=== PATIENT | male | born 1945 | race Caucasian/White ===

== ENCOUNTER → 2019-02-04 | Outpatient (CLI) | payer MEDICARE | END | disposition home or self-care (01) | LOC: Rad HDHVI 09:10 | PROVIDERS: ATTEND Internal Medicine Cardiovascular Disease | DX: R22.40 Localized swelling, mass and lump, unspecified lower limb (principal) | CPT/HCPCS: 93971 ==

== ENCOUNTER → 2022-04-22 | Outpatient (CLI) | payer MEDICARE | END | disposition home or self-care (01) | LOC: Rad HDHVI 10:46 | PROVIDERS: ATTEND Internal Medicine | DX: I51.7 Cardiomegaly (principal); M54.6 Pain in thoracic spine | CPT/HCPCS: 71101; 72070 ==

== ENCOUNTER → 2022-04-25 | Outpatient (CLI) | payer MEDICARE ==
[2022-04-25 12:02] LABS: Basophils # (auto) 0 10 ^3/uL (0-0.2); Basophils % (auto) 0.6 % (0.0-2.0); Eosinophils # (auto) 0.3 10 ^3/uL (0-0.8); Eosinophils % (auto) 5.3 % (0.0-7.0); Hematocrit 49.9 % (41.0-53.0); Hemoglobin 16.9 g/dL (13.5-17.5); Lymphocytes # (auto) 1.2 10 ^3/uL (0.4-5.4); Lymphocytes % (auto) 24.2 % (10.0-50.0); Mean Corpuscular Hgb Conc. 33.8 g/dL (32.0-36.0); Mean Corpuscular Volume 91.9 fL (80.0-100.0); Monocytes # (auto) 0.4 10 ^3/uL (0-1.3); Monocytes % (auto) 7.3 % (0.0-12.0); Neutrophils # (auto) 3.1 10 ^3/uL (1.6-8.6); Neutrophils % (auto) 62.6 % (37.0-80.0); Nucleated Red Blood Cells % 0.2 %; Red Blood Cells 5.43 10^6/uL (4.5-5.90); Red Cell Distribution Width 13.3 % (11.8-14.3); White Blood Cell 4.9 10^3/uL (4.4-10.8)
[2022-04-25 12:12] LABS: Potassium 4.4 mmol/L (3.5-5.1)
[2022-04-25 12:22] LABS: Free T4 (Free Thyroxine) 0.88 ng/dL (0.89-1.76)
[2022-04-25 12:25] LABS: Albumin 3.8 g/dL (3.4-5.0); BUN/Creatinine Ratio 19.5; Bilirubin, Total 1.2 mg/dL (0.2-1.0); Calcium 9.2 mg/dL (8.5-10.1); Total Protein 7.1 g/dL (6.4-8.2)
[2022-04-25 12:34] LABS: Prostate Specific Antigen 4.1 ng/mL (0.0-4.0)
[2022-04-25 12:46] LABS: Urine Blood Negative /uL (Negative); Urine Specific Gravity 1.024 (1.001-1.035)
== END | disposition home or self-care (01) ==
LOC: LAB 08:35
PROVIDERS: ATTEND Internal Medicine
DX: I25.10 Atherosclerotic heart disease of native coronary artery without angina pectoris (principal); E55.9 Vitamin D deficiency, unspecified
CPT/HCPCS: 36415; 80053; 80061; 81003; 82306; 82607; 83036; 84153; 84154; 84403; 84439; 84443; 85025

== ENCOUNTER → 2022-04-29 | Outpatient (CLI) | payer MEDICARE | END | disposition home or self-care (01) | LOC: Rad HDHVI 08:59 | PROVIDERS: ATTEND Internal Medicine | DX: I35.0 Nonrheumatic aortic (valve) stenosis (principal); R06.02 Shortness of breath | CPT/HCPCS: 93306 ==

== ENCOUNTER → 2022-05-02 | Outpatient (CLI) | payer MEDICARE ==
[~2022-05-02] VITALS: Ht 167.6 cm; Wt 82.6 kg
== END | disposition home or self-care (01) ==
LOC: Rad HDHVI 09:04
PROVIDERS: ATTEND Internal Medicine
DX: I25.10 Atherosclerotic heart disease of native coronary artery without angina pectoris (principal); I25.119 Atherosclerotic heart disease of native coronary artery with unspecified angina pectoris; R07.9 Chest pain, unspecified; R06.02 Shortness of breath; E78.5 Hyperlipidemia, unspecified; I10 Essential (primary) hypertension; R07.89 Other chest pain; Z79.82 Long term (current) use of aspirin; Z82.49 Family history of ischemic heart disease and other diseases of the circulatory system
CPT/HCPCS: 78452; 93017; 96374; A9500

== ENCOUNTER → 2024-03-25 | Outpatient (CLI) | payer MEDICARE | END | disposition home or self-care (01) | LOC: Rad HDHVI 09:45 | PROVIDERS: ATTEND Internal Medicine Cardiovascular Disease | DX: R07.89 Other chest pain (principal); I50.23 Acute on chronic systolic (congestive) heart failure | CPT/HCPCS: 93306 ==

== ENCOUNTER → 2024-03-27 | Outpatient (CLI) | payer MEDICARE ==
[~2024-03-27] VITALS: Ht 167.6 cm; Wt 79.4 kg
== END | disposition home or self-care (01) ==
LOC: Rad HDHVI 13:59
PROVIDERS: ATTEND Internal Medicine Cardiovascular Disease
DX: I11.0 Hypertensive heart disease with heart failure (principal); I50.43 Acute on chronic combined systolic (congestive) and diastolic (congestive) heart failure; I25.110 Atherosclerotic heart disease of native coronary artery with unstable angina pectoris; R42 Dizziness and giddiness; E78.5 Hyperlipidemia, unspecified; R06.02 Shortness of breath; R00.2 Palpitations; I25.2 Old myocardial infarction; Z82.49 Family history of ischemic heart disease and other diseases of the circulatory system
CPT/HCPCS: 78452; 93017; 96374; A9500

== ENCOUNTER 2024-12-03 08:49 | Outpatient (CLI) | payer MEDICARE ==
[2024-12-03] MEDS ORDERED: IOHEXOL 350 MG/ML 100ML IJ ONE (09:12)
[2024-12-03 09:20] VITALS: BP 168/87; PULSE 67; RESP 16; O2SAT 96
[2024-12-03 09:37] VITALS: BP 180/80; PULSE 65; RESP 16; O2SAT 96
--- NOTE | 2024-12-03 16:46 | DVH ---
Exam: CT CT AB PEL WITH IV CON ONLY History: ABD PAIN COMPARISON: None Technique: Multidetector spiral CT of the abdomen and pelvis was performed from lung bases to pubic symphysis. Intravenous contrast was administered during this examination. Portal venous imaging was obtained. Axial, coronal and sagittal multiplanar reformats were performed by the technologist on a separate workstation. Radiation Dose : Abdomen/Pelvis: CTDIvol 14.53 mGy, DLP 711.83 mGy*cm. CONTRAST: Type of contrast: Omni 300 Contrast injected: 100 mL Findings: Lung Bases: Consolidation in the left lung base. Liver: Diffuse hepatic steatosis. Gallbladder and biliary Tree: Unremarkable Spleen: Unremarkable Pancreas: The pancreas is normal in appearance without focal lesions or abnormal enhancement. Adrenal Glands: Unremarkable Kidneys: Right renal calculus measuring up to 4 mm. No hydronephrosis. Bladder: Unremarkable Bowel: The stomach is grossly normal in appearance. Small bowel and colon are normal in caliber and d istribution. Normal appendix is visualized in the right lower quadrant without findings of appendicit is. Sigmoid diverticulosis. Ascites: Absent Lymphadenopathy: Subcentimeter mesenteric lymph nodes. Abdominal wall and Mesentery: Unremarkable. Vasculature: The visualized abdominal aorta is normal in size and caliber. There is calcified atheros clerotic plaque involving the aorta and its branches. Abdominal and pelvic vessels demonstrate normal enhancement. Pelvic Organs: Prostate is enlarged. Musculoskeletal: No aggressive focal bony lesions, acute fractures or dislocation. IMPRESSION: 1. No acute abdominal or pelvic finding. Diffuse hepatic steatosis. Right renal calculus measuring up to 4 mm. Sigmoid diverticulosis. Subcentimeter mesenteric lymph nodes. Calcified and soft atheroscle rotic plaque. Prostatomegaly. 2. Consolidation in the left lung base. Consider dedicated chest CT. Radiation optimization: All CT scans at this facility use at least one of these dose optimization pro hniques: Automated exposure control mA and/or kV adjustment per patient size (includes targeted exams where dose is matched to clinical indication) or iterative reconstruction. HS:Y
== END 2024-12-03 17:00 | disposition home or self-care (01) ==
LOC: Rad HDHVI 08:49
PROVIDERS: ATTEND Internal Medicine Cardiovascular Disease
DX: K76.0 Fatty (change of) liver, not elsewhere classified (principal); N20.0 Calculus of kidney; K57.30 Diverticulosis of large intestine without perforation or abscess without bleeding; N40.0 Benign prostatic hyperplasia without lower urinary tract symptoms; I70.90 Unspecified atherosclerosis; R10.9 Unspecified abdominal pain
CPT/HCPCS: 74177; G0463; Q9967

== ENCOUNTER 2024-12-31 10:14 | Inpatient (IN) | payer MEDICARE ==
[2024-12-31] VITALS (7 sets, daily range): BP systolic 108–135; BP diastolic 47–75; PULSE 84–115; RESP 15–20; TEMP 97.2–97.6; O2SAT 93–97
[~2024-12-31] VITALS: Ht 167.6 cm; Wt 83.8 kg
[~2024-12-31 10:14] MED LIST: HYDR12.55 PO; METO25TA5 PO
--- NOTE | 2024-12-31 10:47 | ED.PDOC ---
History of Present Illness HPI Comments This is a 79-year-old male with past medical history of hypertension, hyperlipidemia, CAD with PTCA x2 stent, kidney stone, BPH presented to the ED with a chief complaint of left leg swelling for 3 days prior to this visit. He mentioned that he had a stent in the heart 6-7 months ago but he stopped taking medications for last 1 month. He denies any trauma to the leg, fever, chills, pain, nausea, vomiting, chest pain, dizziness, shortness of breath, recent traveling, prolonged bedrest or any recent surgery. Chief Complaint: Lower Extremity Time Seen by MD: 10:24 Allergies: Coded Allergies: Atorvastatin (Verified Allergy, Unknown, 05/02/22) Rosuvastatin (Verified Allergy, Unknown, 05/02/22) Statins (Verified Allergy, Unknown, 05/02/22) Information Source: Patient Mode of Arrival: Ambulatory Severity: Moderate Timing: Days Duration: Since onset Prehospital treatment: NTG Past Medical History PAST MEDICAL HISTORY: Angina, CAD, High Lipids, HTN, Kidney Stones, [place] Surgical History: PTCA Surgical History (Other): Back and rotator cuff surgery Family History Family History: Family hx of Cancer, Family hx of heart gary Social History Smoker: Non-Smoker Alcohol: Denies ETOH Use Drugs: Denies Drug Use Lives In: Home Constitutional: denies: chills, diaphoresis, fatigue, fever, malaise, sweats, weakness, others EENTM: denies: blurred vision, double vision, ear bleeding, ear discharge, ear drainage, ear pain, ear ringing, eye pain, eye redness, hearing loss, mouth pain, mouth swelling, nasal discharge, nose bleeding, nose congestion, nose pain, photophobia, tearing, throat pain, throat swelling, voice changes, others Respiratory: denies: cough, hemoptysis, orthopnea, SOB at rest, shortness of breath, SOB with excertion, stridor, wheezing, others Cardiovascular: denies: chest pain, dizzy spells, diaphoresis, Dyspnea on e xertion, edema, irregular heart beat, left arm pain, lightheadedness, palpitations, PND, syncope, others Gastrointestinal: denies: abdomen distended, abdominal pain, blood streaked bowels, constipated, diarrhea, dysphagia, difficulty swallowing, hematemesis, melena, nausea, poor appetite, poor fluid intake, rectal bleeding, rectal pain, vomiting, others Genitourinary: denies: burning, dysuria, flank pain, frequency, hematuria, incontinence, penile discharge, penile sore, pain, testicle pain, testicle swelling, urgency, others Neurological: denies: dizziness, fainting, headache, left sided numbness, left sided weakness, numbness, paresthesia, pre-existing deficit, right sided numbness, right sided weakness, seizure, speech problems, tingling, tremors, weakness, others Musculoskeletal: reports: others (Left leg swelling); denies: back pain, gout, joint pain, joint swelling, muscle pain, muscle stiffness, neck pain Integumetry: reports: change in color; denies: bruises, change in hair/nails, dryness, laceration, lesions, lumps, rash, wounds, others Allergic/Immunocompromised: denies: Difficulty Healing, Frequent Infections, Hives, Itching, others Hematologic/Lymphatic: denies: anemia, blood clots, easy bleeding, easy bruising, swollen glands, others Endocrine: denies: excessive hunger, excessive sweating, excessive thirst, excessive urination, flushing, intolerance to cold, intolerance to heat, unexplained weight gain, unexplained weight loss, others Psychiatric: denies: anxiety, bipolar disorder, depression, hopeless, panic disorder, schizophrenia, sleepless, suicidal, others Physical Exam General Appearance: Mild Distress HEENT: Normal ENT Inspection, Pharynx Normal, TMs Normal Neck: Full Range of Motion, Non-Tender, Normal, Normal Inspection Respiratory: Chest Non-Tender, Lungs Clear, No Accessory Muscle Use, No Respiratory Distress, Normal Breath Sounds Cardiovascular: No Edema, No JVD, No Murmur, No Gallop, Normal Peripheral Pulses, Regular Rate/Rhythm Breast Exam: Deferred Gastrointestinal: No Organomegaly, Non Tender, No Pulsatile Mass, Normal Bowel Sounds, Soft Genitalia: Deferred Pelvic: Deferred Rectal: Deferred Extremities: Calf tenderness, Other (Left leg swelling and tenderness from thigh to ankle.) 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 Was a procedure done?: No Differential Dx Considerations may include: DVT, cellulitis of the left leg, acute limb ischemia, peripheral artery disease X-Ray, Labs, Meds, VS Vital Signs Date Time Temp Pulse Resp B/P (MAP) Pulse Ox O2 Delivery O2 Flow Rate FiO2 12/31/24 10:16 97.4 92 16 139/76 97 97.4 Lab Test 12/31/24 11:00 Range/Units White Blood Count 8.2 4.4-10.8 10^3/uL Red Blood Count 5.23 4.5-5.90 10^6/uL Hemoglobin 15.6 13.5-17.5 g/dL Hematocrit 46.1 41.0-53.0 % Mean Corpuscular Volume 88.2 80.0-100.0 fL Mean Corpuscular Hemoglobin 29.9 28.0-32.0 pg Mean Corpuscular Hemoglobin Concent 33.9 32.0-36.0 g/dL Red Cell Distribution Width 13.3 11.8-14.3 % Platelet Count 150 140-450 10^3/uL Mean Platelet Volume 7.8 6.9-10.8 fL Neutrophils (%) (Auto) 75.2 37.0-80.0 % Lymphocytes (%) (Auto) 12.1 10.0-50.0 % Monocytes (%) (Auto) 7.3 0.0-12.0 % Eosinophils (%) (Auto) 4.8 0.0-7.0 % Basophils (%) (Auto) 0.6 0.0-2.0 % Neutrophils # (Auto) 6.2 1.6-8.6 10 ^3/uL Lymphocytes # (Auto) 1.0 0.4-5.4 10 ^3/uL Monocytes # (Auto) 0.6 0-1.3 10 ^3/uL Eosinophils # (Auto) 0.4 0-0.8 10 ^3/uL Basophils # (Auto) 0 0-0.2 10 ^3/uL Nucleated Red Blood Cells 0.1 % Prothrombin Time 11.1 9.3-11.8 sec Prothrombin Time INR 1.05 0.9-1.15 Activated Partial Thromboplast Time 29.4 24.5-34.5 SEC Sodium Level 141 136-145 mmol/L Potassium Level 3.9 3.5-5.1 mmol/L Chloride Level 107 98-107 mmol/L Carbon Dioxide Level 24 20-31 mmol/L Anion Gap 10 5-15 Blood Urea Nitrogen 15 9-23 mg/dL Creatinine 1.28 0.700-1.30 mg/dL Glomerular Filtration Rate Calc 57 >90 mL/min BUN/Creatinine Ratio 11.7 10.0-20.0 Serum Glucose 97 74-106 mg/dL Calcium Level 9.7 8.7-10.4 mg/dL Troponin I High Sensitivity 193 *H </=54 ng/L Current Medications Medications (Trade) Dose Ordered Sig/Will Route Start Time Stop Time Status Last Admin Heparin Sodium (Porcine) 6,500 units ONCE ONCE IV 12/31/24 11:45 12/31/24 12:06 DC 12/31/24 12:50 Heparin Sodium/ Dextrose 250 ml @ 15 mls/hr [id number] IV 12/31/24 11:45 12/31/24 12:48 X-Ray, Labs, Meds, VS Comment Bilateral lower extremity venous duplex Clinical History: Pain Comparison: None Technique: Duplex Doppler evaluation of the deep venous systems of both lower extremities f rom the common femoral veins to the popliteal veins including color Doppler and spectral/pulsed waveform analysis was performed. Findings: RIGHT SIDE: The common femoral vein demonstrates appropriate compressibility and waveform variability. There is compressibility/patency of the great saphenous vein at the proximal thigh. The femoral vein demonstrates appropriate compressibility and waveform variability. The deep femoral vein demonstrates appropriate compressibility and waveform variability. The popliteal vein demonstrates appropriate compressibility and waveform variability. There is normal compressibility at the tibioperoneal trunk. LEFT SIDE: Positive thrombus is present throughout the left lower extremity from the common femoral vein to the posterior tibial vein. Impression: No right femoropopliteal venous thrombosis. Positive DVT extendingfrom the leftcommon femoral veindown to the left posterior tibial vein. Critical Result: DVT History: DVT of the left leg Comparison Study: CT CT AB PEL WITH IV CON ONLY on DOS: 12/03/24 Technique: Multidetector spiral CT of the pelvis was performed from iliac crests to pubic symphysis. 100 cc of intravenous contrast was administered during this examination. Portal venous imaging was obtained. Axial, coronal and sagittal multiplanar reformats were performed by the technologist on a separate workstation. Radiation Dose : CT Dose: CTDI volume is 16.66 mGy. Dose-length product is 2.78 mGy*cm Findings: Visualized bowel: Small bowel and colon are normal in caliber and distribution. The appendix is not visualized; however, no secondary findings of acute appendicitis identified. Ascites: Absent Lymphadenopathy: No pelvic or mesenteric lymphadenopathy. Pelvis Wall and Mesentery: Unremarkable. Vasculature: Mild asymmetric enlargement of the left superficial femoral vein. The visualized abdominal aorta is normal in size and caliber. Abdominal and pelvic vessels demonstrate normal enhancement. Pelvic Organs: Unremarkable Musculoskeletal: No aggressive focal bony lesions, acute fractures or dislocation. Bladder: Unremarkable IMPRESSION: Mild asymmetric enlargement of the left superficial femoral vein likely corresponding to DVT noted on ultrasound dated the same. Images Reviewed?: Images reviewed and evaluated by me Time of 1ST Reevaluation: 14:14 Reevaluation 1ST: Unchanged Patient Education/Counseling: Diagnosis, Treatment Family Education/Counseling: No Family Present Comments 79-year-old male presented to the ED with complaint of left leg swelling for last 3 days Initial physical exam demonstrate swelling and tenderness of the left leg from thigh to the ankle. Venous scan of the lower extremity demonstrated Positive DVT extendingfrom the leftcommon femoral veindown to the left posterior tibial vein. Troponin is elevated Patient is on IV heparin drip as per DVT protocol. The patient will be admitted for further evaluation and management of DVT of the left leg SEPSIS Sepsis Screen Date sepsis recognized/suspect: Dec 31, 2024 Time Sepsis recognized/suspect: 1019 Recent Procedure: No On Antibiotic Therapy: No Respiratory Rate >20: No Heart Rate >90: No Temp<36 C (96.8 F) or >38.3 C: No SBP <90 or MAP <65 mmHG: No New Acute Mental Status Change: No Is the patient on CPAP, BIPAP,: No Physician Orders Bilat Lower Dvt (12/31/24 10:44) Urinalysis (12/31/24 10:44) Electrocardigram (12/31/24 10:46) Chest Portable (12/31/24 11:37) Platelet Monitoring (12/31/24 11:44) Vte Protocol Initiated (12/31/24 11:44) Heparin Per Standardized Proce (12/31/24 11:44) Discontinue All Im Injections (12/31/24 11:44) Heparin Drip/D5w 100units/Ml (12/31/24 11:45) Pelvis With Contrast Only (12/31/24 11:55) Complete Blood Count (01/01/25 04:00) PTPTT (12/31/24 18:00) Heparin Per Pharmacy Protocol (12/31/24 12:07) Vital Signs Date Time Temp Pulse Resp B/P (MAP) Pulse Ox O2 Delivery O2 Flow Rate FiO2 12/31/24 10:16 97.4 92 16 139/76 97 97.4 Laboratory Tests Test 12/31/24 11:00 White Blood Count 8.2 10^3/uL (4.4-10.8) Medications Medications Dose Ordered Sig/Will Route Start Time Stop Time Status Last Admin Dose Admin Heparin Sodium (Porcine) 6,500 units ONCE ONCE IV 12/31/24 11:45 12/31/24 12:06 DC 12/31/24 12:50 Heparin Sodium/ Dextrose 250 ml @ 15 mls/hr [id number] IV 12/31/24 11:45 12/31/24 12:48 Departure 1 Departure Time of Disposition: 14:16 Impression: Primary Impression: Deep vein thrombosis (DVT) of left lower extremity Additional Impression: NSTEMI (non-ST elevated myocardial infarction) Disposition: 09 ADMITTED INPATIENT Admit to: Tele Condition: Guarded Critical Care Note Critical Care Time?: No Stability Stability form required: NANCY Palmer RESIDENT Dec 31, 2024 10:47
[2024-12-31 11:15] LABS: Hematocrit 46.1 % (41.0-53.0); Hemoglobin 15.6 g/dL (13.5-17.5); Mean Corpuscular Hemoglobin 29.9 pg (28.0-32.0); Mean Corpuscular Volume 88.2 fL (80.0-100.0); Nucleated Red Blood Cells % 0.1 %
[2024-12-31 11:20] LABS: Potassium 3.9 mmol/L (3.5-5.1); Sodium 141 mmol/L (136-145)
[2024-12-31 11:21] LABS: Anion Gap 10 (5-15); Carbon Dioxide 24 mmol/L (20-31)
[2024-12-31 11:22] LABS: Calcium 9.7 mg/dL (8.7-10.4); Chloride 107 mmol/L (98-107)
[2024-12-31 11:26] LABS: BUN/Creatinine Ratio 11.7 (10.0-20.0); Blood Urea Nitrogen 15 mg/dL (9-23); Glucose 97 mg/dL (74-106)
--- NOTE | 2024-12-31 11:46 | DVH ---
Bilateral lower extremity venous duplex Clinical History: Pain Comparison: None Technique: Duplex Doppler evaluation of the deep venous systems of both lower extremities from the common femora l veins to the popliteal veins including color Doppler and spectral/pulsed waveform analysis was perf ormed. Findings: RIGHT SIDE: The common femoral vein demonstrates appropriate compressibility and waveform variability. There is compressibility/patency of the great saphenous vein at the proximal thigh. The femoral vein demonstrates appropriate compressibility and waveform variability. The deep femoral vein demonstrates appropriate compressibility and waveform variability. The popliteal vein demonstrates appropriate compressibility and waveform variability. There is normal compressibility at the tibioperoneal trunk. LEFT SIDE: Positive thrombus is present throughout the left lower extremity from the common femoral vein to the posterior tibial vein. Impression: No right femoropopliteal venous thrombosis. Positive DVT extendingfrom the leftcommon femoral veindown to the left posterior tibial vein. Critical Result: DVT Findings discussed with NANCY OLVERA at 12/31/2024 11:43 AM, and acknowledged receipt and understa nding of the findings.
--- NOTE | 2024-12-31 12:12 | CONS ---
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
--- NOTE | 2024-12-31 12:13 | DVH ---
CHEST RADIOGRAPH Indication: elevated troponin Technique: Single frontal view of the chest was obtained COMPARISON: None FINDINGS: Lines and Tubes: None Lungs: Bibasilar subsegmental atelectasis. Pleura: No effusion. No pneumothorax. Cardiomediastinal contours: Unremarkable Bones: Unremarkable IMPRESSION: Bibasilar subsegmental atelectasis.
[2024-12-31] MEDS: IOHEXOL 350 MG/ML 100ML IJ ONE ×2 (12:45→23:26)
[2024-12-31] MEDS: HEPARIN DRIP/D5W 100UNITS/ML 250 ML IV SCH ×2 (12:48→19:41)
[2024-12-31 12:50] LABS: INR 1.05 (0.9-1.15); Partial Thromboplastin Time 29.4 SEC (24.5-34.5); Prothrombin Time 11.1 sec (9.3-11.8)
[2024-12-31] MEDS: HEPARIN SODIUM (PORCINE) 5000 UNITS/ML 1ML VIAL IV ONE (12:50)
--- NOTE | 2024-12-31 13:00 | DVH ---
History: DVT of the left leg Comparison Study: CT CT AB PEL WITH IV CON ONLY on DOS: 12/03/24 Technique: Multidetector spiral CT of the pelvis was performed from iliac crests to pubic symphysis. 100 cc of intravenous contrast was administered during this examination. Portal venous imaging was obtained. Axial, coronal and sagittal multiplanar reformats were performed by the technologist on a separate workstation. Radiation Dose : CT Dose: CTDI volume is 16.66 mGy. Dose-length product is 2.78 mGy*cm Findings: Visualized bowel: Small bowel and colon are normal in caliber and distribution. The appendix is not visualized; however, no secondary findings of acute appendicitis identified. Ascites: Absent Lymphadenopathy: No pelvic or mesenteric lymphadenopathy. Pelvis Wall and Mesentery: Unremarkable. Vasculature: Mild asymmetric enlargement of the left superficial femoral vein. The visualized abdomin al aorta is normal in size and caliber. Abdominal and pelvic vessels demonstrate normal enhancement. Pelvic Organs: Unremarkable Musculoskeletal: No aggressive focal bony lesions, acute fractures or dislocation. Bladder: Unremarkable IMPRESSION: Mild asymmetric enlargement of the left superficial femoral vein likely corresponding to DVT noted on ultrasound dated the same.
[2024-12-31 14:52] LABS: Urine Protein, UAD TRACE (Negative)
[2024-12-31] MEDS ORDERED: ACETAMINOPHEN 325 MG TAB PO PRN (15:00)
[2024-12-31] MEDS ORDERED: HYDROcodone-ACET 5/325MG TAB PO PRN ×2 (15:00→22:30)
[2024-12-31] MEDS ORDERED: DOCUSATE SOD 100 MG CAP PO PRN (15:00)
[2024-12-31] MEDS ORDERED: ONDANSETRON HCL 4 MG/2 ML VIAL IV PRN ×2 (15:00→22:30)
--- NOTE | 2024-12-31 15:52 | DVHHP2 ---
History of Present Illness Reason for Visit: Deep vein thrombosis of left lower extremity History of Present Illness The patient is a 79-year-old male with past medical history of angina, Coronary artery disease, hyperlipidemia, kidney stones, ME, and hypertension who presented to [facility] ED with complaint of left leg swelling for the past 3 days. Patient reports he had a stent in the heart 6-7 months ago, but stopped taking his medication for the last 1 month. Patient was seen and evaluated in the ED, laboratory data shows WBC 8.2, platelets 150, sodium 141, potassium 3.9, BUN 15, creatinine 1.28, glucose 97, calcium 9.7, troponin 193, blood pressure 159/90, heart rate 72, temperature 97.9 F, O2 saturation 97% on room air. Bilateral lower extremity venous study revealing positive DVT extending from the left common femoral vein down to the left posterior tibial vein, no right femoropopliteal venous thrombosis. Patient was started on heparin drip, please see medication orders section in the computer. On my assessment, patient denied chest pain, no headache, no dizziness, no diaphoresis, no shortness of breath, recent traveling, prolonged bedrest or any recent surgery, no nausea, no vomiting, no fever, no chills. Patient was admitted for further evaluation and medical management. Patient's condition progressively get worse with constant chest pain, troponin trending up to 510 and then down to 333, became more diaphoretic, shortness of breaths, EKG showing ST elevation with reciprocal changes anteriorly, cardiology notified and recommend to activate cardiac catheterization lab. Code STEMI activated and patient was transported to lab support service tech in stable condition. Past Medical History Angina, CAD, High Lipids, HTN, Kidney Stones, ME Past Surgical History PTCA, Back and rotator cuff surgery Family History Reviewed, noncontributory to the management of this case. Past Social History The patient lives at home, denies smoking, alcohol or illicit drugs abuse. Review of Systems Constitutional: No: Fever, Chills, Sweats, Weakness, Malaise, Other Eyes: No: Pain, Vision change, Conjunctivae inflammation, Eyelid inflammation, Other, Redness ENT: No: Ear pain, Ear discharge, Nose pain, Nose discharge, Nose congestion, Mouth pain, Mouth swelling, Throat pain, Throat swelling, Other Respiratory: No: Cough, Dry, Shortness of breath, SOB with excertion, Wheezing, Hemoptysis, Pleuritic Pain, Sputum, Wheezing, Other Cardiovascular: No: Chest Pain, Palpitations, Orthopnea, Paroxysmal Noc. Dyspnea, Edema, Lt Headedness, Other Gastrointestinal: No: Nausea, Vomiting, Abdominal Pain, Diarrhea, Constipation, Melena, Hematochezia, Other Genitourinary: No Dysuria, No Frequency, No Incontinence, No Hematuria, No Retention, No Other Musculoskeletal: other (Left leg swelling), leg pain (Left); No: neck pain, shoulder pain, arm pain, back pain, hand pain, foot pain Skin: Other (Left leg change in color); No: Rash, Lesions, Jaundice, Bruising Neurological: No: Weakness, Numbness, Incoordination, Change in speech, Confusion, Seizures, Other Allergies: Coded Allergies: Atorvastatin (Verified Allergy, Unknown, 05/02/22) Rosuvastatin (Verified Allergy, Unknown, 05/02/22) Statins (Verified Allergy, Unknown, 05/02/22) Medications Current Medications Medications Dose Ordered Sig/Will Route Start Time Stop Time Status Last Admin Dose Admin Heparin Sodium/ Dextrose 250 ml @ 15 mls/hr [id number] IV 12/31/24 11:45 12/31/24 12:48 15 MLS/HR Famotidine 20 mg Q12HR IV 12/31/24 22:00 Metoprolol Tartrate 25 mg BID PO 12/31/24 22:00 Tamsulosin HCl 0.4 mg QPM PO 12/31/24 18:00 Sodium Chloride 10 ml Q8HR IV 12/31/24 22:00 Acetaminophen/ Hydrocodone Bitart 1 tab Q4HP PRN PO 12/31/24 15:00 Ondansetron HCl 4 mg Q4HP PRN IV 12/31/24 15:00 Docusate Sodium 100 mg BIDPRN PRN PO 12/31/24 15:00 Acetaminophen 650 mg Q6HP PRN PO 12/31/24 15:00 Exam Vital Signs Vital Signs Date Time Temp Pulse Resp B/P (MAP) Pulse Ox O2 Delivery O2 Flow Rate FiO2 12/31/24 14:00 72 11 159/90 (113) 97 12/31/24 12:00 Room Air* 0 21 12/31/24 11:45 97.9 97.9 General Appearance: Alert, Oriented X3, Cooperative, No acute distress HEENT: Atraumatic, PERRLA, EOMI, Mucous membr. moist/pink Respiratory: Clear to auscultation, Normal air movement Cardiovascular: Regular rate, Normal S1, Normal S2, No murmurs Abdominal: Normal bowel sounds, Soft, No tenderness, No hepatospenomegaly, No masses Extremities: No clubbing, No cyanosis, No edema, Normal pulses, No tenderness/swelling Skin: No rashes, No breakdown, No significant lesion Neuro: Normal gait, Normal speech, Strength at 5/5 X4 ext, Normal tone, Sensation intact, Cranial nerves 3-12 NL, Reflexes 2+ Psych/Mental Status: Mental status NL, Mood NL Labs/Xrays Labs Test 12/31/24 14:02 12/31/24 11:00 Range/Units Urine Color Yellow Yellow Urine Clarity Clear Clear Urine pH 5.5 5.0-9.0 Urine Specific [place] > 1.050 H 1.001-1.035 Urine Protein Trace H Negative Urine Ketones 1+ H Negative Urine Blood 1+ H Negative /uL Urine Nitrite Negative Negative Urine Bilirubin Negative Negative Urine Urobilinogen Normal Negative mg/dL Urine Leukocyte Esterase Negative Negative /uL Urine RBC 47 0 - 3 /hpf Urine Microscopic WBC 1 0-3 /HPF Urine Squamous Epithelial Cells None seen <5 /hpf Urine Bacteria None seen None Seen /hpf Urine Mucus Few None Seen Urine Glucose Normal Normal mg/dL White Blood Count 8.2 4.4-10.8 10^3/uL Red Blood Count 5.23 4.5-5.90 10^6/uL Hemoglobin 15.6 13.5-17.5 g/dL Hematocrit 46.1 41.0-53.0 % Mean Corpuscular Volume 88.2 80.0-100.0 fL Mean Corpuscular Hemoglobin 29.9 28.0-32.0 pg Mean Corpuscular Hemoglobin Concent 33.9 32.0-36.0 g/dL Red Cell Distribution Width 13.3 11.8-14.3 % Platelet Count 150 140-450 10^3/uL Mean Platelet Volume 7.8 6.9-10.8 fL Neutrophils (%) (Auto) 75.2 37.0-80.0 % Lymphocytes (%) (Auto) 12.1 10.0-50.0 % Monocytes (%) (Auto) 7.3 0.0-12.0 % Eosinophils (%) (Auto) 4.8 0.0-7.0 % Basophils (%) (Auto) 0.6 0.0-2.0 % Neutrophils # (Auto) 6.2 1.6-8.6 10 ^3/uL Lymphocytes # (Auto) 1.0 0.4-5.4 10 ^3/uL Monocytes # (Auto) 0.6 0-1.3 10 ^3/uL Eosinophils # (Auto) 0.4 0-0.8 10 ^3/uL Basophils # (Auto) 0 0-0.2 10 ^3/uL Nucleated Red Blood Cells 0.1 % Prothrombin Time 11.1 9.3-11.8 sec Prothrombin Time INR 1.05 0.9-1.15 Activated Partial Thromboplast Time 29.4 24.5-34.5 SEC Sodium Level 141 136-145 mmol/L Potassium Level 3.9 3.5-5.1 mmol/L Chloride Level 107 98-107 mmol/L Carbon Dioxide Level 24 20-31 mmol/L Anion Gap 10 5-15 Blood Urea Nitrogen 15 9-23 mg/dL Creatinine 1.28 0.700-1.30 mg/dL Glomerular Filtration Rate Calc 57 >90 mL/min BUN/Creatinine Ratio 11.7 10.0-20.0 Serum Glucose 97 74-106 mg/dL Calcium Level 9.7 8.7-10.4 mg/dL Troponin I High Sensitivity 193 *H </=54 ng/L PATIENT: ALINA JOHN ACCT: [id number] UNIT: [id number] : 1945 LOC: ER ROOM / BED: / AGE / SEX: 79 / M ADM STATUS: REG ER SERVICE 1044 ORDERING PHYSICIAN: NANCY OLVERA RESIDENT PROCEDURE(s): BLDVT - BiLat Lower DVT REASON: To rule out DVT ORDER NUMBER(s): [id number], ACCESSION NUMBER(s): [id number] Bilateral lower extremity venous duplex Clinical History: Pain Comparison: None Technique: Duplex Doppler evaluation of the deep venous systems of both lower extremities from the common femoral veins to the popliteal veins including color Doppler and spectral/pulsed waveform analysis was performed. Findings: RIGHT SIDE: The common femoral vein demonstrates appropriate compressibility and waveform variability. There is compressibility/patency of the great saphenous vein at the proximal thigh. The femoral vein demonstrates appropriate compressibility and waveform variability. The deep femoral vein demonstrates appropriate compressibility and waveform variability. The popliteal vein demonstrates appropriate compressibility and waveform anuel iability. There is normal compressibility at the tibioperoneal trunk. LEFT SIDE: Positive thrombus is present throughout the left lower extremity from the common femoral vein to the posterior tibial vein. Impression: No right femoropopliteal venous thrombosis. Positive DVT extendingfrom the leftcommon femoral veindown to the left posterior tibial vein. Critical Result: DVT Findings discussed with NANCY OLVERA at 12/31/2024 11:43 AM, and acknowledged receipt and understanding of the findings. ORDERING PHYSICIAN: NANCY OLVERA RESIDENT PROCEDURE(s): PELCT - PELVIS WITH CONTRAST ONLY REASON: DVT of the left leg ORDER NUMBER(s): [id number], ACCESSION NUMBER(s): [id number] History: DVT of the left leg Comparison Study: CT CT AB PEL WITH IV CON ONLY on DOS: 12/03/24 Technique: Multidetector spiral CT of the pelvis was performed from iliac crests to pubic symphysis. 100 cc of intravenous contrast was administered during this examination. Portal venous imaging was obtained. Axial, coronal and sagittal multiplanar reformats were performed by the technologist on a separate workstation. Radiation Dose : CT Dose: CTDI volume is 16.66 mGy. Dose-length product is 2.78 mGy*cm Findings: Visualized bowel: Small bowel and colon are normal in caliber and distribution. The appendix is not visualized; however, no secondary findings of acute append icitis identified. Ascites: Absent Lymphadenopathy: No pelvic or mesenteric lymphadenopathy. Pelvis Wall and Mesentery: Unremarkable. Vasculature: Mild asymmetric enlargement of the left superficial femoral vein. The visualized abdominal aorta is normal in size and caliber. Abdominal and pelvic vessels demonstrate normal enhancement. Pelvic Organs: Unremarkable Musculoskeletal: No aggressive focal bony lesions, acute fractures or dislocation. Bladder: Unremarkable IMPRESSION: Mild asymmetric enlargement of the left superficial femoral vein likely corresponding to DVT noted on ultrasound dated the same. ORDERING PHYSICIAN: NANCY OLVERA RESIDENT PROCEDURE(s): CXRP - CHEST PORTABLE REASON: elevated troponin ORDER NUMBER(s): [id number], ACCESSION NUMBER(s): [id number] CHEST RADIOGRAPH Indication: elevated troponin Technique: Single frontal view of the chest was obtained COMPARISON: None FINDINGS: Lines and Tubes: None Lungs: Bibasilar subsegmental atelectasis. Pleura: No effusion. No pneumothorax. Cardiomediastinal contours: Unremarkable Bones: Unremarkable IMPRESSION: Bibasilar subsegmental atelectasis. SEPSIS Sepsis Screen Date sepsis recognized/suspect: Dec 31, 2024 Time Sepsis recognized/suspect: 1422 Recent Procedure: No On Antibiotic Therapy: No Respiratory Rate >20: No Heart Rate >90: No Temp<36 C (96.8 F) or >38.3 C: No SBP <90 or MAP <65 mmHG: No New Acute Mental Status Change: No Is the patient on CPAP, BIPAP,: No Physician Orders Bilat Lower Dvt (12/31/24 10:44) Electrocardigram (12/31/24 10:46) Chest Portable (12/31/24 11:37) Platelet Monitoring (12/31/24 11:44) Vte Protocol Initiated (12/31/24 11:44) Heparin Per Standardized Proce (12/31/24 11:44) Discontinue All Im Injections (12/31/24 11:44) Heparin Drip/D5w 100units/Ml (12/31/24 11:45) Pelvis With Contrast Only (12/31/24 11:55) Complete Blood Count (01/01/25 04:00) PTPTT (12/31/24 18:00) Heparin Per Pharmacy Protocol (12/31/24 12:07) Famotidine Injection (Pepcid Injection) (12/31/24 22:00) Metoprolol Tartrate Tablet (Lopressor Ta (12/31/24 22:00) Tamsulosin Hydrochloride (Flomax) (12/31/24 18:00) Allergies (12/31/24 14:53) Code Status (12/31/24 14:53) Sodium Chloride Lock (Saline Lock Ns) (12/31/24 22:00) Oxygen Per Hour (12/31/24 14:53) Hydrocodone-Acet 5/325mg Tab ([place] 5/32 (12/31/24 15:00) Ondansetron Hcl (Zofran) (12/31/24 15:00) Docusate Sodium Capsule (Colace Capsule) (12/31/24 15:00) Comprehensive Metabolic Panel (01/01/25 04:00) Cardiac Diet-2gna,Lofat,Lochol (12/31/24 Dinner) Condition: Serious (12/31/24 14:53) Acetaminophen Tablet (Tylenol Tablet) (12/31/24 15:00) Bedrest With Bathroom Privileg (12/31/24 14:53) * Cardiology Consult (12/31/24 15:02) Admit (12/31/24 15:50) Nitroglycerin Sublingual (Ntrostat Subli (12/31/24 16:00) Morphine Sulfate Injection (12/31/24 16:00) Stat Ekg For Chest Pain (12/31/24 15:50) Notify Md Of Changes From Base (12/31/24 15:50) Director Operating Room For 24 Hours (12/31/24 15:50) Emergency Dysrhythmia Protocol (12/31/24 15:50) Rhythm Strips Once Every Shift (12/31/24 15:50) Oxygen By Nasal Cannula (12/31/24 15:50) Vital Signs Date Time Temp Pulse Resp B/P (MAP) Pulse Ox O2 Delivery O2 Flow Rate FiO2 12/31/24 14:00 72 11 159/90 (113) 97 12/31/24 12:00 84 20 96 Room Air* 0 21 12/31/24 11:45 97.9 80 17 178/88 (118) 96 97.9 12/31/24 10:16 97.4 92 16 139/76 97 97.4 Laboratory Tests Test 12/31/24 11:00 White Blood Count 8.2 10^3/uL (4.4-10.8) Medications Medications Dose Ordered Sig/Will Route Start Time Stop Time Status Last Admin Dose Admin Heparin Sodium (Porcine) 6,500 units ONCE ONCE IV 12/31/24 11:45 12/31/24 12:06 DC 12/31/24 12:50 6,500 UNITS Heparin Sodium/ Dextrose 250 ml @ 15 mls/hr [id number] IV 12/31/24 11:45 12/31/24 12:48 15 MLS/HR Assessment/Plan Assessment/Plan Deep vein thrombosis of left lower extremity Hypertensive urgency NSTEMI (non-ST elevated myocardial infarction) STEMI (ST-elevation myocardial infarction) Plan 1. Admit to telemetry unit 2. Breathing treatment 3. Pain control management 4. Management of fluids and electrolytes 5. Consultation for Cardiology 6. Diagnostic tests bilateral lower extremity venous study 7. DVT prophylaxis on heparin drip 8. Repeat labs CBC, CMP in a.m. 9. Continue with current medical management 10. Treatment plan discussed with patient and RN. Patient verbalized understanding. Plan discussed with: Patient, Other (RN) My Orders Orders - BRO ENGLE DNP Procedure Category Date Status Time Famotidine Injection PHA 12/31/24 In Process (Pepcid Injection) 22:00 Metoprolol Tartrate PHA 12/31/24 In Process Tablet (Lopressor Ta 22:00 Tamsulosin PHA 12/31/24 In Process Hydrochloride (Flomax) 18:00 Allergies ANDER 12/31/24 In Process 14:53 Code Status CODE 12/31/24 Transmitted 14:53 Sodium Chloride Lock PHA 12/31/24 In Process (Saline Lock Ns) 22:00 Oxygen Per Hour RT 12/31/24 Transmitted 14:53 Hydrocodone-Acet PHA 12/31/24 In Process 5/325mg Tab ([place] 15:00 Ondansetron Hcl PHA 12/31/24 In Process (Zofran) 15:00 Docusate Sodium PHA 12/31/24 In Process Capsule (Colace 15:00 Comprehensive LAB 01/01/25 Verified Metabolic Panel 04:00 Cardiac DIET 12/31/24 Transmitted Diet-2gna,Lofat,Lochol Dinner Condition: Serious ANDER 12/31/24 In Process 14:53 Acetaminophen Tablet PHA 12/31/24 In Process (Tylenol Tablet) 15:00 Bedrest With Bathroom ANDER 12/31/24 In Process Privileg 14:53 * Cardiology Consult CONS 12/31/24 Transmitted 15:02 Admit ADMIT 12/31/24 Verified 15:50 Nitroglycerin PHA 12/31/24 Verified Sublingual (Ntrostat 16:00 Morphine Sulfate PHA 12/31/24 Verified Injection 16:00 Stat Ekg For Chest ANDER 12/31/24 Verified Pain 15:50 Notify Of Changes ANDER 12/31/24 Verified From Base 15:50 Director Operating Room For ANDER 12/31/24 Verified 24 Hours 15:50 Emergency Dysrhythmia ANDER 12/31/24 Verified Protocol 15:50 Rhythm Strips Once [facility] 12/31/24 Verified Every Shift 15:50 Oxygen By Nasal RT 12/31/24 Verified Cannula 15:50 Problem List: (1) Deep vein thrombosis (DVT) of left lower extremity (2) Hypertensive urgency (3) NSTEMI (non-ST elevated myocardial infarction) (4) STEMI (ST elevation myocardial infarction) Date of Service: Dec 31, 2024 Billing Provider: BRO ENGLE DNP Common Visit Codes: [id number]-[id number] INP/OBS CARE (HIGH) BRO ENGLE DNP Dec 31, 2024 15:52
[2024-12-31] MEDS ORDERED: NITROGLYCERIN 0.4 MG SL TAB SL PRN (16:00)
[2024-12-31] MEDS ORDERED: MORPHINE SULFATE INJ 2 MG/ml SYRG IV PRN (16:00)
[2024-12-31] MEDS: hydrALAZINE HCL 20 MG/ML VL IV PRN (17:34)
[2024-12-31] MEDS: TAMSULOSIN HYDROCHLORIDE 0.4 MG CAP PO SCH (18:15)
[2024-12-31 18:42] LABS: INR 1.08 (0.9-1.15); Prothrombin Time 11.4 sec (9.3-11.8)
[2024-12-31 18:46] LABS: Partial Thromboplastin Time 78.9 SEC (24.5-34.5)
--- NOTE | 2024-12-31 20:26 | CONS ---
Pharmacy Clinical Information: PLEASE CHANGE HEPARIN RATE TO 13 ML/HR OR 1300 UNITS/HR SINCE APTT = 78.9 @1751 12/31 PER RX PROTOCOL NEXT APTT BHANU @0200 01/01 COLEMAN BENSON AWARE AND REPEATED NEW RATE FROM 15 ML/HR TO 13 ML/HR MELINA LI PHARMACIST Dec 31, 2024 20:26
[2024-12-31] MEDS: HEPARIN IN NS 1000Units/500mL 1,500 ML ONE ×2 (20:57→20:58)
[2024-12-31] MEDS: IODIXANOL 320MG/ML 100ML BTL IV ONE (20:57)
[2024-12-31] MEDS: ATROPINE SULF 1 MG/10ml SYR ONE (20:59)
[2024-12-31] MEDS: HEPARIN SODIUM (PORCINE) 5000 UNITS/ML 1ML VIAL ONE (20:59)
[2024-12-31] MEDS: ANGIOMAX 250 MG VIAL IV ONE (20:59)
[2024-12-31] MEDS: VERAPAMIL 2.5MG/ML INJ 2ML VIAL IV ONE (20:59)
[2024-12-31] MEDS: SODIUM CHL 0.9% 50 ML ONE (21:00)
[2024-12-31] MEDS: MIDAZOLAM HCL 2MG/2ML 2ml VIAL (1mg/ml) ONE (21:00)
[2024-12-31] MEDS: fentaNYL CITRATE 100 MCG/2 ML VL ONE (21:00)
[2024-12-31] MEDS: LIDOCAINE 2%HCL (LOCAL ANESTH.) INJ 20ML MDV ONE (21:00)
--- NOTE | 2024-12-31 21:18 | DVHINCON2 ---
CARDIOLOGY CONSULTATION REASON FOR CONSULTATION: Code STEMI CONSULTING PHYSICIAN: Wilmer Sánchez MD REFERRING PHYSICIAN: ER provider. HISTORY OF PRESENT ILLNESS: The patient is a 79-year-old gentleman with a complex history, history of CAD status post PCI about 20 years ago at this facility as well as a cardiac arrest and a PCI to his right coronary artery at [facility] approximately one year ago. He stopped taking his antiplatelet therapy. He came in today to the hospital having back pain, which is his typical presentation for his ACS and his previous heart attacks. At that time, he also complained of left lower extremity swelling. An ultrasound was done that showed that he has a new DVT as well, which is a bit unusual as the patient is ambulating and walking. His creatinine was 1.28. Now, the patient also did not get any chest imaging done, but was treated for troponin elevation, which was 193 up to 510 and then down to 333. The patient did get more chest pain and became more diaphoretic shortly thereafter and the EKG was done after the patient was admitted, a repeat EKG showing ST elevation with reciprocal changes anteriorly. ER doctor called me and I did recommend to activate the woods laborer. Little information was provided to me regarding his history or his active DVT. PAST MEDICAL HISTORY: As stated above. ALLERGIES: ATORVASTATIN, ROSUVASTATIN, AND STATINS. SOCIAL HISTORY: No tobacco or illicit. He is at the bedside with his significant other. PHYSICAL EXAM AND VITAL SIGNS: GENERAL: The patient is in no significant distress. VITAL SIGNS: Heart rate is 94. Respiratory rate is 20. He is on room air. Satting 96%. Blood pressure 102/56. HEENT: Head is normocephalic, atraumatic. ENT: Dry mucous membranes. NECK: Supple. CARDIOVASCULAR: S1, S2. Regular rate and rhythm. LUNGS: With scattered rhonchi. Otherwise fairly clear. ABDOMEN: Obese, soft and nontender. LOWER EXTREMITIES: Left lower extremity with unilateral positive edema to the calf. LABS: His creatinine is 1.28, most recent troponin is down to 333, hemoglobin 15.6, INR 1.08 with a PTT of 39. ASSESSMENT AND PLAN: * Acute STEMI. * Recent DVT. * History of CAD status post PCI to his RCA in the past one year. * Nonadherence to antiplatelet therapy. * Atelectasis. * CKD. * Obesity. PLAN: At this point, I would recommend a cardiac catheter and possible intervention. I discussed extensively the risks, benefits, and alternatives of procedure with the patient as well as his . The patient is at the highest possible risk for cardiovascular complications. He wishes to proceed. I did explain to the patient that there is a possibility that he may be having a PE as well as this has not been evaluated at this point. However, given his presentation and the fact that he has had RCA STEMI within the last 12 months [address] [facility], which I independently had to review myself extensively, all of this information in a short amount of time, I would recommend a cardiac cath and possible intervention. I did explain that if his cath does come back showing no need for intervention, then a CTA would be indicated and likely necessary. The patient is currently on a heparin drip. Further recommendations will follow the patient's clinical course. He will need a 2D echocardiogram as well. He is a very high-risk patient for acute decompensation given the acuity of his presentation and multiple ongoing health issues. The family is aware of this. RN, taking care of the patient, was at the bedside with myself and the patient and his family. 90 minutes of critical care time was spent with 50% [id number] time. Wilmer Sánchez MD CM/EMILY TID: [id number] RECEIPT: [id number]
[2024-12-31] MEDS: NOREPINEPHRINE 8 MG/250ML KIT 250 ML IV ONE (21:36)
[2024-12-31] MEDS: METOPROLOL TARTRATE 25 MG TAB PO SCH (22:00)
--- NOTE | 2024-12-31 22:23 | DVHPN2 ---
Progress Note Date Seen: Dec 31, 2024 Medical Necessity Reason Pt with a Central, PICC or Fol: No Objective vital signs Vital Sign Date Time Temp Pulse Resp B/P (MAP) Pulse Ox O2 Delivery O2 Flow Rate FiO2 12/31/24 22:15 97.2 97 16 112/70 (84) 96 97.2 12/31/24 20:03 Room Air* 0 21 medications Current Medications Medications Dose Ordered Sig/Will Route Start Time Stop Time Status Last Admin Dose Admin Famotidine 20 mg Q12HR IV 12/31/24 22:00 Metoprolol Tartrate 25 mg BID PO 12/31/24 22:00 Tamsulosin HCl 0.4 mg QPM PO 12/31/24 18:00 12/31/24 18:15 0.4 MG Sodium Chloride 10 ml Q8HR IV 12/31/24 22:00 Acetaminophen/ Hydrocodone Bitart 1 tab Q4HP PRN PO 12/31/24 15:00 Ondansetron HCl 4 mg Q4HP PRN IV 12/31/24 15:00 Docusate Sodium 100 mg BIDPRN PRN PO 12/31/24 15:00 Acetaminophen 650 mg Q6HP PRN PO 12/31/24 15:00 Nitroglycerin 0.4 mg Q5MINP PRN SL 12/31/24 16:00 Morphine Sulfate 2 mg Q30M PRN IV 12/31/24 16:00 Amlodipine Besylate 5 mg DAILY PO 01/01/25 10:00 Hydralazine HCl 10 mg Q6HP PRN IV 12/31/24 17:15 12/31/24 19:44 10 MG Hydrochlorothiazide 12.5 mg DAILY PO 01/01/25 10:00 Heparin Sodium/ Dextrose 250 ml @ 13 mls/hr [id number] IV 12/31/24 19:30 12/31/24 19:41 13 MLS/HR laboratory and microbiology Laboratory Tests 12/31/24 11:00 Test 12/31/24 11:00 Range/Units Serum Glucose 97 74-106 mg/dL Problem List/Assessment/Plan Problem List/Assessment/Plan please see my Consult note and Op report dictated appears to have bilateral PE on CTA by my read awaiting CT official read, also spoke to the indian trader restarted heparin gtt currently on o2 and bp 120-s , on low dose levophed during procedure extensive DVT noted as well very high risk for decompensation Plan discussed with: Patient, Spouse, Son My Orders My Orders Orders - GRACIELA ALAMO MD Procedure Category Date Status Time Cl Left Heart Cath CL 12/31/24 Taken 20:[address] 12/31/24 Taken Contrast 21:51 Date of Service: Dec 31, 2024 Billing Provider: GRACIELA ALAMO MD Common Visit Codes: NOT BILLABLE GRACIELA ALAMO MD Dec 31, 2024 22:23
--- NOTE | 2024-12-31 22:42 | DVH ---
CTA Chest with intravenous contrast INDICATION: r/o PE< has acute DVT, chest pain, negative cath chronic cad COMPARISON: None TECHNIQUE: Multidetector spiral CTA of the chest was performed of the chest with intravenous contrast . PULMONARY ANGIOGRAPHY PROTOCOL was utilized using a bolus-tracking technique centered on the main p ulmonary artery. Axial, coronal and sagittal multiplanar and MIP reformats were performed. Radiation Dose : 1. Chest: CTDI volume is 8.88 mGy. Dose-length product is 2.89 mGy*cm The dose indicators for CT are the volume Computed Tomography (CT) Dose Index (CTDIvol) and the Dose Length Product (DLP), and are measured in units of mGy and mGy-cm, respectively. These indicators are not patient dose, but values generated from the CT scanner acquisition factors. The report includes radiation exposure data for exposures received during this examination. Findings: Pulmonary artery: Saddle pulmonary embolism is seen which extends of the bilateral lobar and segmental/ subsegmental re gions. Slightly dilated right ventricle which may reflect right heart strain. Lower neck: Normal thyroid. Lungs: No focal consolidation, pleural effusion or pneumothorax. Heart/Vascular Structures: Normal heart size. No pericardial effusion. Lymph Nodes: No adenopathy Pleura: No pleural effusion or significant pneumothorax. Musculoskeletal: No acute osseous abnormality. Soft tissues: Normal. Upper abdomen: Limited portions of the upper abdomen are unremarkable. IMPRESSION: 1. Saddle pulmonary embolism with questionable right heart strain. 2. Critical findings discussed with Dr. Sánchez by Dr. Ayers via phone on 12/31/2024 10:33 PM.
[2024-12-31 22:51] LABS: Base Excess -2.9 mmol/L (-2.0-3.0)
--- NOTE | 2024-12-31 22:59 | DVHOP ---
DATE OF SURGERY: 12/31/2024 PREOPERATIVE DIAGNOSIS: Code STEMI, inferior. POSTOPERATIVE DIAGNOSIS: Multivessel CAD. PROCEDURES PERFORMED: * Coronary angiogram, selective. * Left heart catheterization. * Conscious sedation administration and supervision less than 15 minutes, as well as 15-30 minutes fluoroscopy use and interpretation. DESCRIPTION OF PROCEDURE: The patient signed informed consent understanding the risks, benefits and alternatives of surgery, he wished to proceed. He was brought to the catheterization laboratory in n.p.o. status. He was prepped in a sterile fashion. Sedation was used per cardiac cath protocol with 1 mg of Versed and 50 mcg of fentanyl. I gave 1 mL of 2% lidocaine to his right wrist with antegrade flow wall puncture. I cannulated his right radial artery and placed a 6-Dutch Glidesheath Slender. Next, an intra-arterial spasmolytic was administered. Next, I took a 6-Dutch JR4, XB 3.5, and Franklin catheter for coronary angiogram. At the completion, all guides and wires were removed, 3000 units of IV heparin was administered and the patient's heparin drip was reinitiated. FINDINGS: 1. RCA: RCA is a moderately large vessel. It is dominant. Proximal RCA is patent. The ____ mid RCA is completely occluded with NATALYA 0 flow with previously placed stents 20 years ago as well as 1 year ago. The stent last year was a 3.0 x 30 placed at [facility] by another physician. This appears to be a chronic occlusion. I initially brought a wire into the ostium of the RCA, but I felt that this was likely a chronic occlusion, I decided to shoot the left system with a Franklin catheter after the XB 3.5 would not fit. 2. Left main: Moderate vessel, bifurcates into the LAD and circumflex. No severe stenosis. 3. Circumflex: Circumflex proximally is patent. It gives off an OM1. This has about an 80% diffusely diseased stenosis. The mid and distal circumflex is patent with mild disease. This was considered 70% per notes from a previous cath done at [facility] by another physician. 4. LAD: In the proximal near ostium, LAD has a 70% stenosis with heavy calcification. The mid and distal LAD bifurcates with a diagonal with diffuse disease, but it is patent. Very ____ small vessels in the distal LAD ____ several diagonal branches coming off distally as well with mild diffuse plaquing. LVEDP was 3 mmHg. At this point, all guides and wires were removed and TR Band was used to obtain hemostasis. During the procedure, the patient had transient hypotension to the 70s and 80s. He started off with a blood pressure in the 90s, and therefore he did need a low-dose Levophed. He was stable on 2 liters of O2 with no chest pain. He had some mild back pain, which he attributed to laying on the table. 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 There are significant collaterals from the left system, LAD system, septals going to the RCA. Therefore, this is likely a chronic RCA SERVICE ELECTRICIAN. PLAN: At this point, I would recommend a CT angiogram. As I did discuss with the patient and family, that if he did not need PCI, we would need to rule out PE for the patient. Pending the CT angiogram, further recommendations will follow. The patient will need a 2D echo and admission to ICU/KRISTOPHER. Wilmer Sánchez MD CM/JOLYNN/ZOE TID: [id number] RECEIPT: [id number]
[2024-12-31] MEDS: HEPARIN DRIP/D5W 100UNITS/ML 250 ML IV ONE (23:26)
[2024-12-31] MEDS: MORPHINE SULFATE INJ 2 MG/ml SYRG IV PRN (23:37)
[2024-12-31] MEDS: SODIUM CHLOR 0.9% PF (SALINE LOCK) 10ML VIAL/SYR IV SCH (23:38)
[2024-12-31] MEDS: FAMOTIDINE (10MG/ML) 2ML VL IV SCH (23:38)
[2025-01-01] VITALS (44 sets, daily range): BP systolic 83–147; BP diastolic 33–73; PULSE 59–101; RESP 10–19; TEMP 97.5–98.2; O2SAT 91–97
[2025-01-01 06:09] LABS: Hematocrit 38.9 % (41.0-53.0); Hemoglobin 13.8 g/dL (13.5-17.5); Mean Corpuscular Hemoglobin 31.1 pg (28.0-32.0); Mean Corpuscular Volume 87.7 fL (80.0-100.0); Nucleated Red Blood Cells % 0.0 %
[2025-01-01 06:46] LABS: Alanine Aminotransferase 14 U/L (7-40); Albumin 3.9 g/dL (3.2-4.8); Alkaline Phosphatase 90 U/L (46-116); Anion Gap 13 (5-15); BUN/Creatinine Ratio 13.2 (10.0-20.0); Bilirubin, Total 0.9 mg/dL (0.2-1.0); Blood Urea Nitrogen 14 mg/dL (9-23); Calcium 8.9 mg/dL (8.7-10.4); Carbon Dioxide 21 mmol/L (20-31); Chloride 105 mmol/L (98-107); Glucose 97 mg/dL (74-106); Potassium 4.1 mmol/L (3.5-5.1); Sodium 139 mmol/L (136-145); Total Protein 6.1 g/dL (5.7-8.2)
[2025-01-01 06:50] LABS: INR 1.08 (0.9-1.15); Partial Thromboplastin Time 68.8 SEC (24.5-34.5); Prothrombin Time 11.4 sec (9.3-11.8)
[2025-01-01] MEDS: hydroCHLOROthiazide 25 MG TAB PO SCH (10:00)
[2025-01-01] MEDS: IODIXANOL 320MG/ML 100ML BTL IV ONE (10:05)
[2025-01-01] MEDS: HEPARIN IN NS 1000Units/500mL 1,500 ML ONE (10:06)
[2025-01-01] MEDS: fentaNYL CITRATE 100 MCG/2 ML VL ONE (10:09)
[2025-01-01] MEDS: HEPARIN SODIUM (PORCINE) 5000 UNITS/ML 1ML VIAL ONE (10:09)
[2025-01-01] MEDS: LIDOCAINE 2%HCL (LOCAL ANESTH.) INJ 20ML MDV ONE (10:10)
[2025-01-01] MEDS: MIDAZOLAM HCL 2MG/2ML 2ml VIAL (1mg/ml) ONE (10:10)
--- NOTE | 2025-01-01 10:47 | ECG ---
[facility] Test Date: 2024-12-31 Test Time: 20:15:53 Pat Name: ALINA JOHN Department: ER Room: [address] [place] [address] Gender: M [employer] Director: : 1945 Requested By: NANCY OLVERA Order Number: [id number] Reading MD: Velasquez Cherry Measurements Intervals [place] Rate: 118 P: 64 RI: 168 QRS: 43 QRSD: 95 T: 99 QT: 325 QTc: 456 Interpretive Statements Fast sinus arrhythmia Inferior infarct, acute (RCA) Probable RV involvement, suggest recording right precordial leads Electronically Signed On 01-01-2025 22:30:48 PDT by Velasquez Cherry Please click the below link to view image of tracing.
[2025-01-01 13:55] LABS: INR 1.12 (0.9-1.15); Prothrombin Time 11.7 sec (9.3-11.8)
--- NOTE | 2025-01-01 13:55 | DVH ---
PROCEDURE: Pulmonary angiography and interventions Procedural Personnel Attending physician(s): Brown Joshi Fellow physician(s): None Resident physician(s): None Advanced practice provider(s): None Pre-procedure diagnosis: Intermediate low risk pulmonary embolism, right heart strain Post-procedure diagnosis: Same Indication: Pulmonary embolism Additional clinical history: None Complications: No immediate complications. IMPRESSION: Angiography of the bilateral main pulmonary arteries demonstrates minimal residual subsegmental embol i following large bore aspiration thrombectomy. Plan: RLE straight x6 hours. Resume anticoagulation. Right groin hemostasis device to be removed Tent ative plan towards left lower extremity thrombectomy as inpatient. PROCEDURE SUMMARY: - Venous access with ultrasound guidance - Bilateral main pulmonary angiography - Superselective pulmonary angiography: Not performed - Pulmonary arterial interventions as described below - Additional procedure(s): None PROCEDURE DETAILS: Pre-procedure Consent: Informed consent for the procedure including risks, benefits and alternatives was obtained a nd time-out was performed prior to the procedure. Preparation: The site was prepared and draped using maximal sterile barrier technique including cutan eous antisepsis. Anesthesia/sedation Level of anesthesia/sedation: Moderate sedation (conscious sedation) Anesthesia/sedation administered by: Independent trained observer under attending supervision with co ntinuous monitoring of the patient s level of consciousness and physiologic status Total intra-service sedation time (minutes): 90 Access Local anesthesia was administered. The vessel was sonographically evaluated and determined to be garnica nt. Real time ultrasound was used to visualize needle entry into the vessel and a permanent image was stored. A 24 Guinean sheath was placed. Vein accessed: Right common femoral vein Access technique: Micropuncture set with 21 gauge needle Pulmonary angiography and interventions The pulmonary arterial system was catheterized using 6 Guinean angled pigtail catheter, 035 glidewire advantage, 035 Amplatz wire. Indication for angiography: Diagnostic angiography - There was no prior catheter-based angiographic s tudy available and a full diagnostic study was performed. The decision to intervene was based on the diagnostic study. Vessel catheterized: Left main pulmonary artery Findings: Minimal residual subsegmental emboli, lower lobe predominant Vessel catheterized: Right main pulmonary artery Findings: Minimal residual subsegmental emboli, lower lobe predominant Thrombectomy Mechanical thrombectomy location: Right interlobar, left lower lobe Mechanical thrombectomy device: Triever 24 catheter Mechanical thrombectomy type: Aspiration Pressure measurements Pressure measurements were obtained via multi-sidehole catheter. Location of pressure measurement: Right main pulmonary artery - Mean pressure (mmHg): 19 (pre), 22 (post) Closure The sheath was removed and hemostasis was achieved. Venous closure technique: Other-FlowStasis Contrast Contrast agent: Visipaque 320 Contrast volume (mL): 120 Radiation Dose Fluoroscopy time (mm:ss): 19:05 Reference air kerma (mGy): 231 Kerma area product (Gy-cm2): 30.34 Additional Details Additional description of procedure: None Registry event: None/3/g Device used: None Equipment details: None Unique Device Identifiers: Not available Specimens removed: None Estimated blood loss (mL): 11-50 Standardized report: [email or web address] Attestation Signer name: Brown Joshi I attest that I was present for the entire procedure. I reviewed the stored images and agree with the report as written.
[2025-01-01 14:04] LABS: Partial Thromboplastin Time 108.7 SEC (24.5-34.5)
--- NOTE | 2025-01-01 14:27 | CONS ---
Pharmacy Clinical Information: HEPARIN DRIP, DVT PROTOCOL HOLD HEPARIN DRIP FOR 1 HR STARTING @1410 , RESTART HEPARIN DRIP AT RATE 1000 UNITS/HR @1510 @1259 APTT 108.7 NEXT APTT DRAW SCHEDULED @2110 PER RX PROTOCOL CONFIRMED AND READ BACK WITH RN EUGENIA BAILEY [facility] RESIDENT Jan 01, 2025 14:27
[2025-01-01] MEDS: HEPARIN DRIP/D5W 100UNITS/ML 250 ML IV SCH ×2 (15:11→22:47)
--- NOTE | 2025-01-01 16:05 | DVHPN2 ---
Subjective Patient denies any symptoms at this time. Reviewed: Care Plan, H&P, Labs, Medications Changes from previous H/P or p: No Changes General: Per HPI Eyes: No Pain, No Vision change, No Conjunctivae inflammation, No Eyelid inflammation, No Other, No Redness ENT: No Ear pain, No Ear discharge, No Nose pain, No Nose discharge, No Nose congestion, No Mouth pain, No Mouth swelling, No Throat pain, No Throat swelling, No Other Cardiovascular: No Chest Pain, No Palpitations, No Orthopnea, No Paroxysmal Noc. Dyspnea, No Edema, No Lt Headedness, No Other Respiratory: No Cough, No Dry, No Shortness of breath, No SOB with excertion, No Wheezing, No Hemoptysis, No Pleuritic Pain, No Sputum, No Other Gastrointestinal: No Nausea, No Vomiting, No Abdominal Pain, No Diarrhea, No Constipation, No Melena, No Hematochezia, No Other Genitourinary: No Dysuria, No Frequency, No Incontinence, No Hematuria, No Retention, No Other Musculoskeletal: other (Left leg swelling); No neck pain, No shoulder pain, No arm pain, No back pain, No hand pain; leg pain (Left); No foot pain Skin: No Rash, No Lesions, No Jaundice, No Bruising; Other (Left leg change in color) Objective Vitals Vital Signs Date Time Temp Pulse Resp B/P (MAP) Pulse Ox O2 Delivery O2 Flow Rate FiO2 01/01/25 12:30 89 13 116/68 (84) 96 01/01/25 04:00 97.5 97.5 01/01/25 01:41 Nasal Cannula* 2 28 Intake/Output Intake and Output 01/01/25 07:00 Intake Total 460 ml Output Total 200 ml Balance 260 ml Intake Oral 240 ml IV Total 220 ml Output Urine Total 200 ml General Appearance: Alert, Oriented X3, Cooperative, mild distress HEENT: Atraumatic, PERRLA Lungs: Clear to auscultation, Normal air movement Cardiovascular: Normal S1, Normal S2 Musculoskeletal: Normal sensory function, Normal motor function Neuro: Normal gait, Normal speech Skin: Dry, Intact Psych/Mental Status: Mental status NL, Mood NL Medications Current Medications Medications Dose Ordered Sig/Will Route Start Time Stop Time Status Last Admin Dose Admin Famotidine 20 mg Q12HR IV 12/31/24 22:00 01/01/25 14:34 20 MG Metoprolol Tartrate 25 mg BID PO 12/31/24 22:00 Tamsulosin HCl 0.4 mg QPM PO 12/31/24 18:00 12/31/24 18:15 0.4 MG Sodium Chloride 10 ml Q8HR IV 12/31/24 22:00 01/01/25 15:14 10 ML Acetaminophen/ Hydrocodone Bitart 1 tab Q4HP PRN PO 12/31/24 15:00 Ondansetron HCl 4 mg Q4HP PRN IV 12/31/24 15:00 Docusate Sodium 100 mg BIDPRN PRN PO 12/31/24 15:00 Acetaminophen 650 mg Q6HP PRN PO 12/31/24 15:00 Nitroglycerin 0.4 mg Q5MINP PRN SL 12/31/24 16:00 Morphine Sulfate 2 mg Q30M PRN IV 12/31/24 16:00 Amlodipine Besylate 5 mg DAILY PO 01/01/25 10:00 Hydralazine HCl 10 mg Q6HP PRN IV 12/31/24 17:15 12/31/24 19:44 10 MG Hydrochlorothiazide 12.5 mg DAILY PO 01/01/25 10:00 Morphine Sulfate 2 mg Q4HPRN PRN IV 12/31/24 22:30 12/31/24 23:37 2 MG Heparin Sodium/ Dextrose 250 ml @ 10 mls/hr Q24H IV 01/01/25 15:10 01/01/25 15:11 1,000 MLS/HR Laboratory Results Laboratory Tests 01/01/25 05:29 Chemistry Test 01/01/25 05:29 Albumin 3.9 g/dL (3.2-4.8) Calcium Level 8.9 mg/dL (8.7-10.4) Total Protein 6.1 g/dL (5.7-8.2) Coagulation Test 12/31/24 17:51 01/01/25 05:29 01/01/25 12:59 Prothrombin Time 11.4 sec (9.3-11.8) 11.4 sec (9.3-11.8) 11.7 sec (9.3-11.8) Prothrombin Time INR 1.08 (0.9-1.15) 1.08 (0.9-1.15) 1.12 (0.9-1.15) Activated Partial Thromboplast Time 78.9 SEC (24.5-34.5) *H 68.8 SEC (24.5-34.5) H 108.7 SEC (24.5-34.5) *H LFT Test 01/01/25 05:29 Alanine Aminotransferase (ALT) 14 U/L (7-40) Alkaline Phosphatase 90 U/L (46-116) Aspartate Amino Transferase (AST) 36 U/L (13-40) Total Bilirubin 0.9 mg/dL (0.2-1.0) Urinalysis Test 12/31/24 14:02 Urine Color Yellow (Yellow) Urine Clarity Clear (Clear) Urine pH 5.5 (5.0-9.0) Urine Specific [place] > 1.050 (1.001-1.035) Urine Protein Trace (Negative) H Urine Ketones 1+ (Negative) H Urine Blood 1+ /uL (Negative) H Urine Nitrite Negative (Negative) Urine Bilirubin Negative (Negative) Urine Urobilinogen Normal mg/dL (Negative) Urine Leukocyte Esterase Negative /uL (Negative) Urine RBC 47 /hpf (0 - 3) Urine Microscopic WBC 1 /HPF (0-3) Urine Squamous Epithelial Cells None seen /hpf (<5) Urine Bacteria None seen /hpf (None Seen) Urine Mucus Few (None Seen) Urine Glucose Normal mg/dL (Normal) Blood Gas Results Test 12/31/24 22:44 Arterial Blood pH 7.425 (7.350-7.450) FiO2 % 28.0 Microbiology Microbiology Date/Time Source Procedure Growth Status 12/31/24 23:57 Nose MRSA Screen - Final Complete Labs and/or images reviewed: Labs reviewed by me, Image(s) reviewed by me Assessment/Plan Assessment/Plan Impression: -NSTEMI type 2 secondary to saddle pulmonary embolism -acute hypoxic respiratory failure -CAD with multivessel disease -DVT of left lower extremity -BPH -dyslipidemia -primary hypertension Plan: Events: Patient was taken to organic lab worker yesterday as a code STEMI. Patient was found to have multivessel disease, with no findings of occluded vessel. Patient did have noted DVT to left lower extremity as well as positive CT angiogram of the chest with bilateral PE, in addition to saddle PE. Patient was taken to cardiac catheterization lab today for pulmonary thrombectomy. Plans for DVT thrombectomy tomorrow. -continue anticoagulation with heparin drip -continue antihypertensives -O2 supplementation to keep saturation greater than 92% -Restart Flomax -Repeat labs in a.m. Critical care time spent with patient discussing and formulating plan of care: 40 minutes. This does not include time spent performing procedures. This medical document was created using an electronic medical record system with [employer] dictation system. Although this document has been carefully reviewed, there may still be some phonetic and typographical errors. These areas are purely typographical due to imperfections of the software programs, and do not reflect any compromise in the patient's medical care. Plan discussed with: Patient, Other My Orders Orders - LEONARD FIGUEROA NP Procedure Category Date Status Time Perc.Arterial XY 01/01/25 Resulted Thrombectomy 12:14 *Consult Dr. Dumont CONS 01/01/25 Transmitted Arun[place]alam 15:57 Basic Metabolic Panel LAB 01/02/25 Verified 04:00 Date of Service: Jan 01, 2025 Billing Provider: LEONARD FIGUEROA NP Common Visit Codes: [id number] CARE 30-74 MIN LEONARD FIGUEROA NP Jan 01, 2025 16:05
[2025-01-01] MEDS ORDERED: TAMS-35 PO (17:58)
[2025-01-01] MEDS ORDERED: ASPI-543 PO (17:58)
[2025-01-01] MEDS ORDERED: CLOP75TA28 PO (18:00)
[2025-01-01] MEDS: TAMSULOSIN HYDROCHLORIDE 0.4 MG CAP PO SCH (18:24)
[2025-01-01 22:16] LABS: INR 1.06 (0.9-1.15); Partial Thromboplastin Time 46.2 SEC (24.5-34.5); Prothrombin Time 11.2 sec (9.3-11.8)
[2025-01-02] VITALS (49 sets, daily range): BP systolic 87–147; BP diastolic 35–82; PULSE 64–90; RESP 10–22; TEMP 97.5–98.6; O2SAT 91–98
[2025-01-02] MEDS ORDERED: OLME40TA9 PO (04:50)
[2025-01-02 06:26] LABS: Hematocrit 38.4 % (41.0-53.0); Hemoglobin 13.0 g/dL (13.5-17.5); Mean Corpuscular Hemoglobin 29.7 pg (28.0-32.0); Mean Corpuscular Volume 88.0 fL (80.0-100.0); Nucleated Red Blood Cells % 0.0 %
[2025-01-02 06:53] LABS: Anion Gap 9 (5-15); Carbon Dioxide 24 mmol/L (20-31); Chloride 104 mmol/L (98-107); Potassium 3.6 mmol/L (3.5-5.1); Sodium 137 mmol/L (136-145)
[2025-01-02 06:55] LABS: Calcium 8.7 mg/dL (8.7-10.4)
[2025-01-02 06:59] LABS: Glucose 98 mg/dL (74-106)
[2025-01-02 07:00] LABS: BUN/Creatinine Ratio 14.5 (10.0-20.0); Blood Urea Nitrogen 16 mg/dL (9-23)
[2025-01-02 07:08] LABS: INR 1.08 (0.9-1.15); Partial Thromboplastin Time 53.2 SEC (24.5-34.5); Prothrombin Time 11.4 sec (9.3-11.8)
[2025-01-02] MEDS ORDERED: OLME5TAB22 PO (08:52)
--- NOTE | 2025-01-02 09:06 | CONS ---
Pharmacy Clinical Information: HEPARIN DRIP, DVT PROTOCOL @0527 APTT 53.2 - NO BOLUS, NO CHANGE NEXT APTT DRAW SCHEDULED @1130 PER RX PROTOCOL CONFIRMED AND READ BACK WITH RN EUGENIA DOWNS [facility] RESIDENT Jan 02, 2025 09:06
--- NOTE | 2025-01-02 09:28 | DVHPN2 ---
Subjective Patient denies any symptoms at this time. Reviewed: Care Plan, H&P, Labs, Medications Changes from previous H/P or p: No Changes General: Per HPI Eyes: No Pain, No Vision change, No Conjunctivae inflammation, No Eyelid inflammation, No Other, No Redness ENT: No Ear pain, No Ear discharge, No Nose pain, No Nose discharge, No Nose congestion, No Mouth pain, No Mouth swelling, No Throat pain, No Throat swelling, No Other Cardiovascular: No Chest Pain, No Palpitations, No Orthopnea, No Paroxysmal Noc. Dyspnea, No Edema, No Lt Headedness, No Other Respiratory: No Cough, No Dry, No Shortness of breath, No SOB with excertion, No Wheezing, No Hemoptysis, No Pleuritic Pain, No Sputum, No Other Gastrointestinal: No Nausea, No Vomiting, No Abdominal Pain, No Diarrhea, No Constipation, No Melena, No Hematochezia, No Other Genitourinary: No Dysuria, No Frequency, No Incontinence, No Hematuria, No Retention, No Other Musculoskeletal: other (Left leg swelling); No neck pain, No shoulder pain, No arm pain, No back pain, No hand pain; leg pain (Left); No foot pain Skin: No Rash, No Lesions, No Jaundice, No Bruising; Other (Left leg change in color) Objective Vitals Vital Signs Date Time Temp Pulse Resp B/P (MAP) Pulse Ox O2 Delivery O2 Flow Rate FiO2 01/02/25 09:00 88 16 147/82 (103) 97 01/02/25 08:00 97.8 97.8 01/02/25 07:32 Nasal Cannula* 2 28 Intake/Output Intake and Output 01/02/25 07:00 Intake Total 710 ml Output Total 435 ml Balance 275 ml Intake Oral 480 ml IV Total 230 ml Output Urine Total 435 ml General Appearance: Alert, Oriented X3, Cooperative, mild distress HEENT: Atraumatic, PERRLA Lungs: Clear to auscultation, Normal air movement Cardiovascular: Normal S1, Normal S2 Musculoskeletal: Normal sensory function, Normal motor function Neuro: Normal gait, Normal speech Skin: Dry, Intact Psych/Mental Status: Mental status NL, Mood NL Medications Current Medications Medications Dose Ordered Sig/Will Route Start Time Stop Time Status Last Admin Dose Admin Famotidine 20 mg Q12HR IV 12/31/24 22:00 01/02/25 08:39 20 MG Metoprolol Tartrate 25 mg BID PO 12/31/24 22:00 01/02/25 08:38 25 MG Sodium Chloride 10 ml Q8HR IV 12/31/24 22:00 01/02/25 05:59 10 ML Acetaminophen/ Hydrocodone Bitart 1 tab Q4HP PRN PO 12/31/24 15:00 Ondansetron HCl 4 mg Q4HP PRN IV 12/31/24 15:00 Docusate Sodium 100 mg BIDPRN PRN PO 12/31/24 15:00 Acetaminophen 650 mg Q6HP PRN PO 12/31/24 15:00 Nitroglycerin 0.4 mg Q5MINP PRN SL 12/31/24 16:00 Morphine Sulfate 2 mg Q30M PRN IV 12/31/24 16:00 Amlodipine Besylate 5 mg DAILY PO 01/01/25 10:00 01/02/25 08:46 5 MG Hydralazine HCl 10 mg Q6HP PRN IV 12/31/24 17:15 12/31/24 19:44 10 MG Hydrochlorothiazide 12.5 mg DAILY PO 01/01/25 10:00 Morphine Sulfate 2 mg Q4HPRN PRN IV 12/31/24 22:30 12/31/24 23:37 2 MG Tamsulosin HCl 0.4 mg QPM PO 01/01/25 18:00 01/01/25 18:24 0.4 MG Heparin Sodium/ Dextrose 250 ml @ 12 mls/hr [id number] IV 01/01/25 23:00 01/01/25 22:47 12 MLS/HR Laboratory Results Laboratory Tests 01/02/25 05:27 Chemistry Test 01/02/25 05:27 Calcium Level 8.7 mg/dL (8.7-10.4) Coagulation Test 01/01/25 12:59 01/01/25 21:43 01/02/25 05:27 Prothrombin Time 11.7 sec (9.3-11.8) 11.2 sec (9.3-11.8) 11.4 sec (9.3-11.8) Prothrombin Time INR 1.12 (0.9-1.15) 1.06 (0.9-1.15) 1.08 (0.9-1.15) Activated Partial Thromboplast Time 108.7 SEC (24.5-34.5) *H 46.2 SEC (24.5-34.5) H 53.2 SEC (24.5-34.5) H Urinalysis Test 12/31/24 14:02 Urine Color Yellow (Yellow) Urine Clarity Clear (Clear) Urine pH 5.5 (5.0-9.0) Urine Specific [place] > 1.050 (1.001-1.035) Urine Protein Trace (Negative) H Urine Ketones 1+ (Negative) H Urine Blood 1+ /uL (Negative) H Urine Nitrite Negative (Negative) Urine Bilirubin Negative (Negative) Urine Urobilinogen Normal mg/dL (Negative) Urine Leukocyte Esterase Negative /uL (Negative) Urine RBC 47 /hpf (0 - 3) Urine Microscopic WBC 1 /HPF (0-3) Urine Squamous Epithelial Cells None seen /hpf (<5) Urine Bacteria None seen /hpf (None Seen) Urine Mucus Few (None Seen) Urine Glucose Normal mg/dL (Normal) Microbiology Microbiology Date/Time Source Procedure Growth Status 12/31/24 23:57 Nose MRSA Screen - Final Complete Labs and/or images reviewed: Labs reviewed by me, Image(s) reviewed by me Assessment/Plan Assessment/Plan Impression: -NSTEMI type 2 secondary to saddle pulmonary embolism with cor pulmonale -acute hypoxic respiratory failure -CAD with multivessel disease -DVT of left lower extremity -BPH -dyslipidemia -primary hypertension Plan: Events: No events overnight. Plans for DVT thrombectomy today. Right inguinal area benign -continue anticoagulation with heparin drip -continue antihypertensives -O2 supplementation to keep saturation greater than 92% -Repeat labs in a.m. Critical care time spent with patient discussing and formulating plan of care: 40 minutes. This does not include time spent performing procedures. This medical document was created using an electronic medical record system with [employer] dictation system. Although this document has been carefully reviewed, there may still be some phonetic and typographical errors. These areas are purely typographical due to imperfections of the software programs, and do not reflect any compromise in the patient's medical care. Plan discussed with: Patient, Other (RN) My Orders Orders - LEONARD FIGUEROA APARTMENT LEASING CONSULTANT Procedure Category Date Status Time Perc.Arterial XY 01/01/25 Resulted Thrombectomy 12:14 *Consult Dr. Dumont CONS 01/01/25 Transmitted [place]unasalam 15:57 Tamsulosin PHA 01/01/25 In Process Hydrochloride (Flomax) 18:00 Amlodipine Tablet PHA 01/02/25 Verified (Norvasc Tablet) 10:00 Basic Metabolic Panel LAB 01/03/25 Verified 04:00 Complete Blood Count LAB 01/03/25 Verified 04:00 Date of Service: Jan 02, 2025 Billing Provider: LEONARD FIGUEROA NP Common Visit Codes: [id number]/[id number] DISCH DAY >30min LEONARD FIGUEROA NP Jan 02, 2025 09:28
--- NOTE | 2025-01-02 12:44 | DVHPN2 ---
Progress Note - Dictate Date Seen: Jan 01, 2025 Medical Necessity Reason Pt with a Central, PICC or Fol: No Subjective PT WITH PE DVT NON CARDIAC ELEVATION OF TROPONIN PMH HTN BPH HX OF CAD - vital signs Vital Sign Date Time Temp Pulse Resp B/P (MAP) Pulse Ox O2 Delivery O2 Flow Rate FiO2 01/02/25 11:56 17 94 Nasal Cannula* 2 28 01/02/25 11:30 66 124/62 (82) 01/02/25 08:00 97.8 97.8 Total Intake and Output 01/01/25 01/01/25 01/02/25 15:00 23:00 07:00 Intake Total 78 ml 320 ml 312 ml Output Total 210 ml 225 ml Balance 78 ml 110 ml 87 ml medications Current Medications Medications Dose Ordered Sig/Will Route Start Time Stop Time Status Last Admin Dose Admin Famotidine 20 mg Q12HR IV 12/31/24 22:00 01/02/25 08:39 20 MG Metoprolol Tartrate 25 mg BID PO 12/31/24 22:00 01/02/25 08:38 25 MG Sodium Chloride 10 ml Q8HR IV 12/31/24 22:00 01/02/25 05:59 10 ML Acetaminophen/ Hydrocodone Bitart 1 tab Q4HP PRN PO 12/31/24 15:00 Ondansetron HCl 4 mg Q4HP PRN IV 12/31/24 15:00 Docusate Sodium 100 mg BIDPRN PRN PO 12/31/24 15:00 Acetaminophen 650 mg Q6HP PRN PO 12/31/24 15:00 Nitroglycerin 0.4 mg Q5MINP PRN SL 12/31/24 16:00 Morphine Sulfate 2 mg Q30M PRN IV 12/31/24 16:00 Hydralazine HCl 10 mg Q6HP PRN IV 12/31/24 17:15 12/31/24 19:44 10 MG Hydrochlorothiazide 12.5 mg DAILY PO 01/01/25 10:00 Morphine Sulfate 2 mg Q4HPRN PRN IV 12/31/24 22:30 12/31/24 23:37 2 MG Tamsulosin HCl 0.4 mg QPM PO 01/01/25 18:00 01/01/25 18:24 0.4 MG Heparin Sodium/ Dextrose 250 ml @ 12 mls/hr [id number] IV 01/01/25 23:00 01/01/25 22:47 12 MLS/HR Amlodipine Besylate 10 mg DAILY PO 01/03/25 10:00 laboratory and microbiology Laboratory Tests 01/02/25 05:27 Test 01/02/25 05:27 Range/Units Serum Glucose 98 74-106 mg/dL Problem List PE DVT NON CARDIAC ELEVATION OF TROPONIN PMH HTN BPH HX OF CAD - Assessment/Plan MILD PAH LVH RVE ANTICOAGULATION START PAH MEDS ADEMPAS CONSIDER IVC FILTER Plan discussed with: Patient RADHA BROWN MD Jan 02, 2025 12:44
[2025-01-02 12:45] LABS: Hematocrit 38.2 % (41.0-53.0); Hemoglobin 13.3 g/dL (13.5-17.5); Mean Corpuscular Hemoglobin 30.4 pg (28.0-32.0); Mean Corpuscular Volume 87.4 fL (80.0-100.0); Nucleated Red Blood Cells % 0.0 %
[2025-01-02 12:58] LABS: INR 1.03 (0.9-1.15); Partial Thromboplastin Time 51.5 SEC (24.5-34.5); Prothrombin Time 10.9 sec (9.3-11.8)
--- NOTE | 2025-01-02 13:20 | CONS ---
Pharmacy Clinical Information: HEPARIN DRIP, DVT PROTOCOL @1212 APTT 51.5 - NO BOLUS, NO CHANGE NEXT APTT DRAW SCHEDULED @1800 PER RX PROTOCOL CONFIRMED AND READ BACK WITH RN EUGENIA DOWNS [facility] RESIDENT Jan 02, 2025 13:20
--- NOTE | 2025-01-02 14:07 | ECG ---
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
--- NOTE | 2025-01-02 15:44 | DVHSR ---
APPROVED REPORT EXAM: Two-dimensional and M-mode echocardiogram with Doppler and color Doppler. Blood Pressure: 104/60 mmHg INDICATION PE RISK FACTORS Height: 5'6", Weight: 179 DIMENSIONS LVDd4.5 (3.8-5.7cm)LA (2D)3.7 (1.9-4.0cm)Aortic Root3.2 (2.0-3.7cm) LVDs3.1 (2.5-4.0cm)LA (MM) (1.9-4.0cm)Aortic Cusp Exc0.6 (1.5-2.0cm) EF (%) 60.0 (55-70%)Rt. Atrium3.9 (1.9-4.0cm)Asc. Aorta3.4 cm IVSd1.6 (0.7-1.1cm)RV (D)3.9 (1.8-2.4cm) PWd0.8 (0.7-1.1cm) Mitral Valve MitralMitral Stenosis E wave0.94m/sMV Mean GR.mmHg A wave1.10m/sMV Peak GR.mmHg E/A ratio0.92D MVAcm2 DECEL [id number] 1/2 Timems Aortic Valve Aortic ValveAortic Stenosis V11.15m/Shalini Mean GR.23mmHg V23.10m/Shalini Peak GR.39mmHg LVOT Diameter2.1 (1.8-2.4cm)Doppler AVA1.28cm2 Pulmonic Valve V20.95m/s Tricuspid Valve TR Velocity2.45m/s [id number] Other Information Quality : Technically LimitedRhythm : Technically limited study due to body habitus. Conclusion lvef 55-60% mild LVH RV normal size and function left atirum enlarged moderate , mean gradient of 27 mmhg mild mitral regurg
[2025-01-02 19:19] LABS: INR 1.03 (0.9-1.15); Partial Thromboplastin Time 46.2 SEC (24.5-34.5); Prothrombin Time 10.9 sec (9.3-11.8)
[2025-01-02] MEDS: HEPARIN DRIP/D5W 100UNITS/ML 250 ML IV SCH (19:45)
[2025-01-03] VITALS (26 sets, daily range): BP systolic 88–148; BP diastolic 41–73; PULSE 60–78; RESP 8–20; TEMP 97.5–98.5; O2SAT 93–96
[2025-01-03 02:48] LABS: INR 1.04 (0.9-1.15); Partial Thromboplastin Time 59.2 SEC (24.5-34.5); Prothrombin Time 11.0 sec (9.3-11.8)
[2025-01-03 07:29] LABS: Hematocrit 38.0 % (41.0-53.0); Hemoglobin 13.2 g/dL (13.5-17.5); Mean Corpuscular Hemoglobin 30.4 pg (28.0-32.0); Mean Corpuscular Volume 87.6 fL (80.0-100.0); Nucleated Red Blood Cells % 0.0 %
[2025-01-03 07:43] LABS: Chloride 105 mmol/L (98-107); Potassium 4.0 mmol/L (3.5-5.1); Sodium 140 mmol/L (136-145)
[2025-01-03 07:44] LABS: Anion Gap 8 (5-15); Calcium 9.0 mg/dL (8.7-10.4); Carbon Dioxide 27 mmol/L (20-31)
[2025-01-03 07:49] LABS: BUN/Creatinine Ratio 14.8 (10.0-20.0); Blood Urea Nitrogen 16 mg/dL (9-23); Glucose 95 mg/dL (74-106)
[2025-01-03] MEDS: fentaNYL CITRATE 100 MCG/2 ML VL ONE (09:44)
[2025-01-03] MEDS: MIDAZOLAM HCL 2MG/2ML 2ml VIAL (1mg/ml) ONE (09:45)
[2025-01-03] MEDS: LIDOCAINE 2%HCL (LOCAL ANESTH.) INJ 20ML MDV ONE (09:45)
[2025-01-03] MEDS: IODIXANOL 320MG/ML 100ML BTL IV ONE ×2 (09:45→11:26)
[2025-01-03] MEDS: HEPARIN SODIUM (PORCINE) 5000 UNITS/ML 1ML VIAL ONE (10:40)
--- NOTE | 2025-01-03 11:15 | DVHPN2 ---
Subjective Patient denies any symptoms at this time. Reviewed: Care Plan, H&P, Labs, Medications Changes from previous H/P or p: No Changes General: Per HPI Eyes: No Pain, No Vision change, No Conjunctivae inflammation, No Eyelid inflammation, No Other, No Redness ENT: No Ear pain, No Ear discharge, No Nose pain, No Nose discharge, No Nose congestion, No Mouth pain, No Mouth swelling, No Throat pain, No Throat swelling, No Other Cardiovascular: No Chest Pain, No Palpitations, No Orthopnea, No Paroxysmal Noc. Dyspnea, No Edema, No Lt Headedness, No Other Respiratory: No Cough, No Dry, No Shortness of breath, No SOB with excertion, No Wheezing, No Hemoptysis, No Pleuritic Pain, No Sputum, No Other Gastrointestinal: No Nausea, No Vomiting, No Abdominal Pain, No Diarrhea, No Constipation, No Melena, No Hematochezia, No Other Genitourinary: No Dysuria, No Frequency, No Incontinence, No Hematuria, No Retention, No Other Musculoskeletal: other (Left leg swelling); No neck pain, No shoulder pain, No arm pain, No back pain, No hand pain; leg pain (Left); No foot pain Skin: No Rash, No Lesions, No Jaundice, No Bruising; Other (Left leg change in color) Objective Vitals Vital Signs Date Time Temp Pulse Resp B/P (MAP) Pulse Ox O2 Delivery O2 Flow Rate FiO2 01/03/25 09:00 67 10 117/68 (84) 96 01/03/25 08:00 98.0 98.0 01/03/25 07:39 Nasal Cannula* 2 28 Intake/Output Intake and Output 01/03/25 07:00 Intake Total 786 ml Output Total 825 ml Balance -39 ml Intake Oral 500 ml IV Total 286 ml Output Urine Total 825 ml # Bowel Movements 1 General Appearance: Alert, Oriented X3, Cooperative, mild distress HEENT: Atraumatic, PERRLA Lungs: Clear to auscultation, Normal air movement Cardiovascular: Normal S1, Normal S2 Musculoskeletal: Normal sensory function, Normal motor function Neuro: Normal gait, Normal speech Skin: Dry, Intact Psych/Mental Status: Mental status NL, Mood NL Medications Current Medications Medications Dose Ordered Sig/Will Route Start Time Stop Time Status Last Admin Dose Admin Famotidine 20 mg Q12HR IV 12/31/24 22:00 01/02/25 21:55 20 MG Metoprolol Tartrate 25 mg BID PO 12/31/24 22:00 01/02/25 21:55 25 MG Sodium Chloride 10 ml Q8HR IV 12/31/24 22:00 01/03/25 05:51 10 ML Acetaminophen/ Hydrocodone Bitart 1 tab Q4HP PRN PO 12/31/24 15:00 Ondansetron HCl 4 mg Q4HP PRN IV 12/31/24 15:00 Docusate Sodium 100 mg BIDPRN PRN PO 12/31/24 15:00 Acetaminophen 650 mg Q6HP PRN PO 12/31/24 15:00 Nitroglycerin 0.4 mg Q5MINP PRN SL 12/31/24 16:00 Morphine Sulfate 2 mg Q30M PRN IV 12/31/24 16:00 Hydralazine HCl 10 mg Q6HP PRN IV 12/31/24 17:15 12/31/24 19:44 10 MG Hydrochlorothiazide 12.5 mg DAILY PO 01/01/25 10:00 Morphine Sulfate 2 mg Q4HPRN PRN IV 12/31/24 22:30 12/31/24 23:37 2 MG Tamsulosin HCl 0.4 mg QPM PO 01/01/25 18:00 01/02/25 18:32 0.4 MG Amlodipine Besylate 10 mg DAILY PO 01/03/25 10:00 Heparin Sodium/ Dextrose 250 ml @ 14 mls/hr [id number] 01/02/25 19:45 Laboratory Results Laboratory Tests 01/03/25 04:49 Chemistry Test 01/03/25 04:49 Calcium Level 9.0 mg/dL (8.7-10.4) Coagulation Test 01/02/25 12:12 01/02/25 18:28 01/03/25 01:38 Prothrombin Time 10.9 sec (9.3-11.8) 10.9 sec (9.3-11.8) 11.0 sec (9.3-11.8) Prothrombin Time INR 1.03 (0.9-1.15) 1.03 (0.9-1.15) 1.04 (0.9-1.15) Activated Partial Thromboplast Time 51.5 SEC (24.5-34.5) H 46.2 SEC (24.5-34.5) H 59.2 SEC (24.5-34.5) H Urinalysis Test 12/31/24 14:02 Urine Color Yellow (Yellow) Urine Clarity Clear (Clear) Urine pH 5.5 (5.0-9.0) Urine Specific [place] > 1.050 (1.001-1.035) Urine Protein Trace (Negative) H Urine Ketones 1+ (Negative) H Urine Blood 1+ /uL (Negative) H Urine Nitrite Negative (Negative) Urine Bilirubin Negative (Negative) Urine Urobilinogen Normal mg/dL (Negative) Urine Leukocyte Esterase Negative /uL (Negative) Urine RBC 47 /hpf (0 - 3) Urine Microscopic WBC 1 /HPF (0-3) Urine Squamous Epithelial Cells None seen /hpf (<5) Urine Bacteria None seen /hpf (None Seen) Urine Mucus Few (None Seen) Urine Glucose Normal mg/dL (Normal) Microbiology Microbiology Date/Time Source Procedure Growth Status 12/31/24 23:57 Nose MRSA Screen - Final Complete Labs and/or images reviewed: Labs reviewed by me, Image(s) reviewed by me Assessment/Plan Assessment/Plan Impression: -NSTEMI type 2 secondary to saddle pulmonary embolism with cor pulmonale -acute hypoxic respiratory failure -CAD with multivessel disease -DVT of left lower extremity -BPH -dyslipidemia -primary hypertension Plan: Events: No events overnight. Patient had label stitcher. Receiving DVT thrombectomy. -stop heparin drip this evening. Start Eliquis per DVT/PE protocol -continue antihypertensives -O2 supplementation to keep saturation greater than 92% -Repeat labs in a.m. -transferred to telemetry Total time spent with patient discussing and formulating plan of care: 35 minutes. This medical document was created using an electronic medical record system with [employer] dictation system. Although this document has been carefully reviewed, there may still be some phonetic and typographical errors. These areas are purely typographical due to imperfections of the software programs, and do not reflect any compromise in the patient's medical care. Plan discussed with: Patient, Other (RN) My Orders Orders - LEONARD FIGUEROA DISPATCHER SERVICE CHIEF Procedure Category Date Status Time Npo (Nothing By DIET 01/03/25 Transmitted Mouth) Diet Breakfast Venogram Unilateral XY 01/03/25 Logged 09:10 Percu.Venous XY 01/03/25 Logged Thrombectomy 09:10 Date of Service: Jan 03, 2025 Billing Provider: LEONARD FIGUEROA NP Common Visit Codes: [id number] INP/OBS CARE(HIGH) LEONARD FIGUEROA NP Jan 03, 2025 11:15
--- NOTE | 2025-01-03 12:31 | DVH ---
PROCEDURE: Diagnostic venography and interventions Procedural Personnel Attending physician(s): Brown Joshi Fellow physician(s): None Resident physician(s): None Advanced practice provider(s): None Procedure Date (//yyy): 01/03/2025 Pre-procedure diagnosis: Lower extremity DVT Post-procedure diagnosis: Same Indication: Deep venous thrombosis of uncertain age Additional clinical history: None Complications: No immediate complications. 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 Acute thrombus of the popliteal vein, common femoral vein, and external iliac veins w ith minimal residual thrombus following mechanical thrombectomy and balloon venoplasty. Recanalizati on of the left superficial femoral vein with improved patency and caliber following balloon venoplast y. Plan: Continue heparin with plan to bridge to DOAC. Left knee straight x2 hours post procedure. Flow stasis device over left popliteal vein to be removed 02/04/25. PROCEDURE SUMMARY: - Venous access with ultrasound guidance - Selective venography as described below - Additional procedure(s): Mechanical or aspiration thrombectomy, venoplasty PROCEDURE DETAILS: Pre-procedure Consent: Informed consent for the procedure including risks, benefits and alternatives was obtained a nd time-out was performed prior to the procedure. Preparation: The site was prepared and draped using maximal sterile barrier technique including cutan eous antisepsis. Anesthesia/sedation Level of anesthesia/sedation: Moderate sedation (conscious sedation) Anesthesia/sedation administered by: Independent trained observer under attending supervision with co ntinuous monitoring of the patient s level of consciousness and physiologic status Total intra-service sedation time (minutes): 120 Access Local anesthesia was administered. The vessel was sonographically evaluated and determined to be part ially thrombosed. Real time ultrasound was used to visualize needle entry into the vessel and a perma nent image was stored. A 13 Pashto sheath was placed. Laterality: Left Vein accessed: Popliteal vein Access technique: Micropuncture set with 21 gauge needle Venography The veins were catheterized using 5 Pashto glide catheter, glidewire advantage/amplatz wire. Indication for venography: Diagnostic angiography - There was no prior catheter-based angiographic st udy available and a full diagnostic study was performed. The decision to intervene was based on the d iagnostic study. Vein catheterized: Left popliteal vein, left [place] superficial femoral vein Findings: Acute thrombus of the left popliteal, superficial femoral, common femoral, and external sindhu ac veins. 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 Venoplasty Venoplasty location: Left external iliac, common femoral, superficial femoral, and popliteal veins Venoplasty balloon: 8mm x 40mm Barnum Post-intervention venography: Improved patency and caliber of the veins with moderate improvement at the level of previously occluded superficial femoral vein Venous stent placement Venous stent location: NA Venous stent: NA Lot number: NA Post-stenting venoplasty: None Post-stenting venography: NA Mechanical or aspiration thrombectomy Venous segment treated: Left external iliac, common femoral, superficial femoral, and popliteal veins Thrombectomy device: ClotTriever Bold Post-thrombectomy venography: Near complete resolution of acute thrombus of the treated veins Intra-procedural thrombolytic injection Thrombolytic injection location: NA Thrombolytic agent:NA Thrombolytic dose: NA Post-intervention venography: NA Initiation of catheter-directed thrombolysis Catheter placed: NA Infusion length: NA Venous segment infused: NA Intravascular ultrasound Vessel imaged: Left external iliac, common femoral, superficial femoral, and popliteal veins Indication for IVUS: Thrombus, stenosis, and venous occlusion with recanalization Findings: Acute thrombus from the popliteal vein to the external iliac vein. Mild external compressio n of the left external iliac vein near the confluence of the internal iliac vein. Wall thickening inv olving the atretic left [place] superficial femoral vein, improved following balloon angioplasty. Closure The sheath was removed and hemostasis was achieved. Venous closure technique: Other-FlowStasis Contrast Contrast agent: Visipaque 320 Contrast volume (mL): 90 Radiation Dose Fluoroscopy time (mm:ss): 16:26 Reference air kerma (mGy): 81 Kerma area product (Gy-cm2): 14.85 Additional Details Additional description of procedure: None Registry event: V/3/g Device used: None Equipment details: None Unique Device Identifiers: Not available Specimens removed: None Estimated blood loss (mL): Less than 10 Standardized report: [email or web address] Attestation Signer name: Brown Joshi I attest that I was present for the entire procedure. I reviewed the stored images and agree with the report as written.
[2025-01-03 13:51] LABS: INR 1.08 (0.9-1.15); Prothrombin Time 11.4 sec (9.3-11.8)
[2025-01-03 13:53] LABS: Partial Thromboplastin Time > 139.0 SEC (24.5-34.5)
--- NOTE | 2025-01-03 14:01 | DVHPN2 ---
Progress Note - Dictate Date Seen: Jan 03, 2025 Medical Necessity Reason Pt with a Central, PICC or Fol: No Subjective PT WITH PE DVT NON CARDIAC ELEVATION OF TROPONIN PMH HTN BPH HX OF CAD - vital signs Vital Sign Date Time Temp Pulse Resp B/P (MAP) Pulse Ox O2 Delivery O2 Flow Rate FiO2 01/03/25 13:00 77 12 113/72 (86) 01/03/25 12:28 94 Nasal Cannula* 2 28 01/03/25 12:00 98.1 98.1 Total Intake and Output 01/02/25 01/02/25 01/03/25 15:00 23:00 07:00 Intake Total 96 ml 378 ml 312 ml Output Total 475 ml 350 ml Balance 96 ml -97 ml -38 ml medications Current Medications Medications Dose Ordered Sig/Will Route Start Time Stop Time Status Last Admin Dose Admin Famotidine 20 mg Q12HR IV 12/31/24 22:00 01/02/25 21:55 20 MG Metoprolol Tartrate 25 mg BID PO 12/31/24 22:00 01/02/25 21:55 25 MG Sodium Chloride 10 ml Q8HR IV 12/31/24 22:00 01/03/25 13:37 10 ML Acetaminophen/ Hydrocodone Bitart 1 tab Q4HP PRN PO 12/31/24 15:00 Ondansetron HCl 4 mg Q4HP PRN IV 12/31/24 15:00 Docusate Sodium 100 mg BIDPRN PRN PO 12/31/24 15:00 Acetaminophen 650 mg Q6HP PRN PO 12/31/24 15:00 Nitroglycerin 0.4 mg Q5MINP PRN SL 12/31/24 16:00 Morphine Sulfate 2 mg Q30M PRN IV 12/31/24 16:00 Hydralazine HCl 10 mg Q6HP PRN IV 12/31/24 17:15 12/31/24 19:44 10 MG Hydrochlorothiazide 12.5 mg DAILY PO 01/01/25 10:00 Morphine Sulfate 2 mg Q4HPRN PRN IV 12/31/24 22:30 12/31/24 23:37 2 MG Tamsulosin HCl 0.4 mg QPM PO 01/01/25 18:00 01/02/25 18:32 0.4 MG Amlodipine Besylate 10 mg DAILY PO 01/03/25 10:00 Heparin Sodium/ Dextrose 250 ml @ 14 mls/hr [id number] IV 01/03/25 11:15 01/03/25 20:00 Apixaban 10 mg BID PO 01/03/25 22:00 01/10/25 21:59 Apixaban 5 mg BID PO 01/10/25 22:00 laboratory and microbiology Laboratory Tests 01/03/25 04:49 Test 01/03/25 04:49 Range/Units Serum Glucose 95 74-106 mg/dL Problem List PE DVT NON CARDIAC ELEVATION OF TROPONIN PMH HTN BPH HX OF CAD - Assessment/Plan MILD PAH LVH RVE ANTICOAGULATION START PAH MEDS ADEMPAS CONSIDER IVC FILTER Dietary Evaluation Review Comments: 1) Advance to cardiac diet as medically feasible 2) Monitor NPO status, lab values, weight trend, and I/O Expected Outcomes/Goals: To meet >75% estimated needs Fu 2-3 days Plan discussed with: Patient, Spouse RADHA BROWN MD Jan 03, 2025 14:01
[2025-01-03] MEDS: HEPARIN DRIP/D5W 100UNITS/ML 250 ML IV SCH ×2 (15:00)
--- NOTE | 2025-01-03 15:17 | CONS ---
Pharmacy Clinical Information: APTT result >139 received from 1300 draw. Please hold for 1 hour, then adjust heparin to 1100 units per hour (11mL/hr) starting at 1500. Nurse Modesta held Heparin @1354 and adjusted rate to 1100 units per hour @1500. Did not order PT/PTT as order will be discontinued (2200) prior to draw time (2100) per Dr. Martinez. Per PRx protocol. TARUN CLEMENTE PHARMACIST Jan 03, 2025 15:17
[2025-01-03] MEDS: APIXABAN 5 MG TAB PO SCH (22:15)
[2025-01-04] VITALS (12 sets, daily range): BP systolic 118–138; BP diastolic 40–73; PULSE 63–105; RESP 12–28; TEMP 97.1–98.7; O2SAT 94–99
[2025-01-04] MEDS ORDERED: APIX5TAB4 PO (17:12)
--- NOTE | 2025-01-04 17:15 | DVHPN2 ---
[facility]ive [facility] Patient is seen and evaluated. Underwent successful thrombectomy of his left lower extremity for DVT as well as lungs pulmonary embolism. Clinically stable. No complaints Reviewed: Care Plan, H&P, Labs, Medications Changes from previous H/P or p: No Changes General: Per HPI Eyes: No Pain, No Vision change, No Conjunctivae inflammation, No Eyelid inflammation, No Other, No Redness ENT: No Ear pain, No Ear discharge, No Nose pain, No Nose discharge, No Nose congestion, No Mouth pain, No Mouth swelling, No Throat pain, No Throat swelling, No Other Cardiovascular: No Chest Pain, No Palpitations, No Orthopnea, No Paroxysmal Noc. Dyspnea, No Edema, No Lt Headedness, No Other Respiratory: No Cough, No Dry, No Shortness of breath, No SOB with excertion, No Wheezing, No Hemoptysis, No Pleuritic Pain, No Sputum, No Other Gastrointestinal: No Nausea, No Vomiting, No Abdominal Pain, No Diarrhea, No Constipation, No Melena, No Hematochezia, No Other Genitourinary: No Dysuria, No Frequency, No Incontinence, No Hematuria, No Retention, No Other Musculoskeletal: other (Left leg swelling); No neck pain, No shoulder pain, No arm pain, No back pain, No hand pain; leg pain (Left); No foot pain Skin: No Rash, No Lesions, No Jaundice, No Bruising; Other (Left leg change in color) Objective Vitals Vital Signs Date Time Temp Pulse Resp B/P (MAP) Pulse Ox O2 Delivery O2 Flow Rate FiO2 01/04/25 16:00 17 97 Room Air* 0 21 01/04/25 16:00 98.5 105 136/73 (94) 98.5 Intake/Output Intake and Output 01/04/25 07:00 Intake Total 667 ml Output Total 1000 ml Balance -333 ml Intake Oral 550 ml IV Total 117 ml Output Urine Total 1000 ml General Appearance: Alert, Oriented X3, Cooperative, mild distress HEENT: Atraumatic, PERRLA Lungs: Clear to auscultation, Normal air movement Cardiovascular: Normal S1, Normal S2 Musculoskeletal: Normal sensory function, Normal motor function Neuro: Normal gait, Normal speech Skin: Dry, Intact Psych/Mental Status: Mental status NL, Mood NL Medications Current Medications Medications Dose Ordered Sig/Will Route Start Time Stop Time Status Last Admin Dose Admin Famotidine 20 mg Q12HR IV 12/31/24 22:00 01/04/25 10:29 20 MG Metoprolol Tartrate 25 mg BID PO 12/31/24 22:00 01/04/25 10:00 25 MG Sodium Chloride 10 ml Q8HR IV 12/31/24 22:00 01/04/25 10:35 10 ML Acetaminophen/ Hydrocodone Bitart 1 tab Q4HP PRN PO 12/31/24 15:00 Ondansetron HCl 4 mg Q4HP PRN IV 12/31/24 15:00 Docusate Sodium 100 mg BIDPRN PRN PO 12/31/24 15:00 Acetaminophen 650 mg Q6HP PRN PO 12/31/24 15:00 Nitroglycerin 0.4 mg Q5MINP PRN SL 12/31/24 16:00 Morphine Sulfate 2 mg Q30M PRN IV 12/31/24 16:00 Hydralazine HCl 10 mg Q6HP PRN IV 12/31/24 17:15 12/31/24 19:44 10 MG Hydrochlorothiazide 12.5 mg DAILY PO 01/01/25 10:00 01/04/25 10:00 12.5 MG Morphine Sulfate 2 mg Q4HPRN PRN IV 12/31/24 22:30 12/31/24 23:37 2 MG Tamsulosin HCl 0.4 mg QPM PO 01/01/25 18:00 01/03/25 18:02 0.4 MG Amlodipine Besylate 10 mg DAILY PO 01/03/25 10:00 01/04/25 10:00 10 MG Apixaban 10 mg BID PO 01/03/25 22:00 01/10/25 21:59 01/04/25 10:00 10 MG Apixaban 5 mg BID PO 01/10/25 22:00 Laboratory Results Laboratory Tests 01/03/25 04:49 Urinalysis Test 12/31/24 14:02 Urine Color Yellow (Yellow) Urine Clarity Clear (Clear) Urine pH 5.5 (5.0-9.0) Urine Specific [place] > 1.050 (1.001-1.035) Urine Protein Trace (Negative) H Urine Ketones 1+ (Negative) H Urine Blood 1+ /uL (Negative) H Urine Nitrite Negative (Negative) Urine Bilirubin Negative (Negative) Urine Urobilinogen Normal mg/dL (Negative) Urine Leukocyte Esterase Negative /uL (Negative) Urine RBC 47 /hpf (0 - 3) Urine Microscopic WBC 1 /HPF (0-3) Urine Squamous Epithelial Cells None seen /hpf (<5) Urine Bacteria None seen /hpf (None Seen) Urine Mucus Few (None Seen) Urine Glucose Normal mg/dL (Normal) Microbiology Microbiology Date/Time Source Procedure Growth Status 12/31/24 23:57 Nose MRSA Screen - Final Complete Assessment/Plan Assessment/Plan -NSTEMI type 2 secondary to saddle pulmonary embolism with cor pulmonale -acute hypoxic respiratory failure -CAD with multivessel disease -DVT of left lower extremity -BPH -dyslipidemia -primary hypertension Status post thrombectomy of the lungs as well as the leg. Apparently has been received. Started on Eliquis. Continue this. Discussed with the patient/ at bedside regarding care plan. He remains stable consider discharge home tomorrow. Plan discussed with: Patient, Spouse My Orders Orders - YENI KINGSLEY MD Procedure Category Date Status Time Communication Order ORDERS 01/04/25 Transmitted 16:07 Date of Service: Jan 04, 2025 Billing Provider: YENI KINGSLEY MD Common Visit Codes: 49646-HCH/OBS DISCH DAY <30MIN YENI KINGSLEY MD Jan 04, 2025 17:15
[2025-01-05] VITALS (10 sets, daily range): BP systolic 118–128; BP diastolic 53–73; PULSE 64–95; RESP 11–30; TEMP 98–98.5; O2SAT 92–98
--- NOTE | 2025-01-05 15:45 | DVHDS2 ---
Discharge Summary Date of Admission Dec 31, 2024 at 15:50 Date of Discharge: Jan 05, 2025 Labs/Diagnostic Data: Laboratory Results Test 01/03/25 13:00 01/03/25 04:49 01/01/25 05:29 12/31/24 22:44 Prothrombin Time 11.4 sec (9.3-11.8) Prothrombin Time INR 1.08 (0.9-1.15) Activated Partial Thromboplast Time > 139.0 SEC (24.5-34.5) White Blood Count 6.6 10^3/uL (4.4-10.8) Red Blood Count 4.33 10^6/uL (4.5-5.90) Hemoglobin 13.2 g/dL (13.5-17.5) Hematocrit 38.0 % (41.0-53.0) Mean Corpuscular Volume 87.6 fL (80.0-100.0) Mean Corpuscular Hemoglobin 30.4 pg (28.0-32.0) Mean Corpuscular Hemoglobin Concent 34.7 g/dL (32.0-36.0) Red Cell Distribution Width 13.4 % (11.8-14.3) Platelet Count 126 10^3/uL (140-450) Mean Platelet Volume 8.5 fL (6.9-10.8) Neutrophils (%) (Auto) 67.6 % (37.0-80.0) Lymphocytes (%) (Auto) 15.8 % (10.0-50.0) Monocytes (%) (Auto) 8.5 % (0.0-12.0) Eosinophils (%) (Auto) 7.8 % (0.0-7.0) Basophils (%) (Auto) 0.3 % (0.0-2.0) Neutrophils # (Auto) 4.5 10 ^3/uL (1.6-8.6) Lymphocytes # (Auto) 1.0 10 ^3/uL (0.4-5.4) Monocytes # (Auto) 0.6 10 ^3/uL (0-1.3) Eosinophils # (Auto) 0.5 10 ^3/uL (0-0.8) Basophils # (Auto) 0 10 ^3/uL (0-0.2) Nucleated Red Blood Cells 0.0 % Sodium Level 140 mmol/L (136-145) Potassium Level 4.0 mmol/L (3.5-5.1) Chloride Level 105 mmol/L (98-107) Carbon Dioxide Level 27 mmol/L (20-31) Anion Gap 8 (5-15) Blood Urea Nitrogen 16 mg/dL (9-23) Creatinine 1.08 mg/dL (0.700-1.30) Glomerular Filtration Rate Calc 70 mL/min (>90) BUN/Creatinine Ratio 14.8 (10.0-20.0) Serum Glucose 95 mg/dL (74-106) Calcium Level 9.0 mg/dL (8.7-10.4) Total Bilirubin 0.9 mg/dL (0.2-1.0) Aspartate Amino Transferase (AST) 36 U/L (13-40) Alanine Aminotransferase (ALT) 14 U/L (7-40) Alkaline Phosphatase 90 U/L (46-116) Total Protein 6.1 g/dL (5.7-8.2) Albumin 3.9 g/dL (3.2-4.8) Blood Gas Specimen Type Arterial Blood Gas Sample Site Left radial Blood Gas Patient Temperature 37.0 Arterial Blood Date Drawn [id number] Arterial Blood pH 7.425 (7.350-7.450) Arterial Blood Partial Pressure CO2 31.8 mmHg (35.0-48.0) Arterial Blood Partial Pressure O2 94.4 mmHg (83.0-108.0) Arterial Blood HCO3 20.4 mmol/L (21.0-28.0) Arterial Blood Oxygen Saturation 97.1 % (94.0-98.0) Arterial Blood Base Excess -2.9 mmol/L (-2.0-3.0) Arterial Blood Oxyhemoglobin 96.3 % (94.0-98.0) Arterial Blood Carboxyhemoglobin 0.7 % (0.5-1.5) Arterial Blood Methemoglobin 0.1 % (0.0-1.5) Crow Test Yes Blood Gas Total Hemoglobin 14.70 g/dL (13.5-17.5) Blood Gas Liter Flow 2.00 Blood Gas Modality Nasal cannula FiO2 % 28.0 Test 12/31/24 19:49 12/31/24 14:02 Troponin I High Sensitivity 333 ng/L (</=54) Urine Color Yellow (Yellow) Urine Clarity Clear (Clear) Urine pH 5.5 (5.0-9.0) Urine Specific [place] > 1.050 (1.001-1.035) Urine Protein Trace (Negative) Urine Ketones 1+ (Negative) Urine Blood 1+ /uL (Negative) Urine Nitrite Negative (Negative) Urine Bilirubin Negative (Negative) Urine Urobilinogen Normal mg/dL (Negative) Urine Leukocyte Esterase Negative /uL (Negative) Urine RBC 47 /hpf (0 - 3) Urine Microscopic WBC 1 /HPF (0-3) Urine Squamous Epithelial Cells None seen /hpf (<5) Urine Bacteria None seen /hpf (None Seen) Urine Mucus Few (None Seen) Urine Glucose Normal mg/dL (Normal) Other Laboratory Tests 01/03/25 04:49 Brief Hx & Hospital Course: The patient is a 79-year-old male with past medical history of angina, Coronary artery disease, hyperlipidemia, kidney stones, MT, and hypertension who presented to [facility] ED with complaint of left leg swelling for the past 3 days. Patient reports he had a stent in the heart 6-7 months ago, but stopped taking his medication for the last 1 month. Patient was seen and evaluated in the ED, laboratory data shows WBC 8.2, platelets 150, sodium 141, potassium 3.9, BUN 15, creatinine 1.28, glucose 97, calcium 9.7, troponin 193, blood pressure 159/90, heart rate 72, temperature 97.9 F, O2 saturation 97% on room air. Bilateral lower extremity venous study revealing positive DVT extending from the left common femoral vein down to the left posterior tibial vein, no right femoropopliteal venous thrombosis. Patient was started on heparin drip, please see medication orders section in the computer. On my assessment, patient denied chest pain, no headache, no dizziness, no diaphoresis, no shortness of breath, recent traveling, prolonged bedrest or any recent surgery, no nausea, no vomiting, no fever, no chills. Patient was admitted for further evaluation and medical management. Patient's condition progressively get worse with constant chest pain, troponin trending up to 510 and then down to 333, became more diaphoretic, shortness of breaths, EKG showing ST elevation with reciprocal changes anteriorly, cardiology notified and recommend to activate cardiac catheterization lab. 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 Admitted and post coronary angiogram patient noted to have DVT PE. Therefore he had a successful thrombectomy of his blood clots in his lungs as well as in his leg. Etiology of his blood loss is unclear. I have talked to him that he needs to have his prostate issues followed up outpatient with the Urology ruled out any underlying prostate cancer as well as other hypercoagulable workup including colonoscopy with the primary care physician. Patient is otherwise clinically did well and oxygenating normally on room air. Vital signs are stable. Ambulating without any issues. Therefore he has been discharged home in stable condition. He is advised to continue the Eliquis as prescribed and have a close follow up with the PCP and referrals to Urology and Gastroenterology as deemed appropriate. I have also advised him to stop his Plavix and continue aspirin and Eliquis. Patient verbalized understanding of his hospital diagnosis, treatment he received, procedures he had done, discharge medications, discharge instructions and agree with the discharge follow-up plan of care. I have talked to him regarding risks of bleeding with the Eliquis as well as benefits of treating blood clots. Patient verbalized understanding of this and all his questions were answered appropriately. Consults/Reason for consult PROCEDURE: Pulmonary angiography and interventions Pre-procedure diagnosis: Intermediate low risk pulmonary embolism, right heart strain Post-procedure diagnosis: Same Indication: Pulmonary embolism Additional clinical history: None Complications: No immediate complications. IMPRESSION: Angiography of the bilateral main pulmonary arteries demonstrates minimal residual subsegmental emboli following large bore aspiration thrombectomy. Plan: RLE straight x6 hours. Resume anticoagulation. Right groin hemostasis device to be removed Tentative plan towards left lower extremity thrombectomy as inpatient. Operations or Procedures PROCEDURE: Diagnostic venography and interventions Procedure Date (mm/dd/yyyy): 01/03/2025 Pre-procedure diagnosis: Lower extremity DVT Post-procedure diagnosis: Same Indication: Deep venous thrombosis of uncertain age Additional clinical history: None Complications: No immediate complications. 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 Acute thrombus of the popliteal vein, common femoral vein, and external iliac veins with minimal residual thrombus following mechanical thrombectomy and balloon venoplasty. Recanalization of the left superficial femoral vein with improved patency and caliber following balloon venoplasty. Plan: Continue heparin with plan to bridge to DOAC. Left knee straight x2 hours post procedure. Flow stasis device over left popliteal vein to be removed 9/23/25. Condition at Discharge: Stable Final Diagnosis/Problems List -NSTEMI type 2 secondary to saddle pulmonary embolism with cor pulmonale -acute hypoxic respiratory failure -CAD with multivessel disease -DVT of left lower extremity -BPH -dyslipidemia -primary hypertension Acute pulmonary embolism, acute lower extremity DVT, status post thrombectomy Discharge Disposition: Home Discharge Instruct/Medications Diet: Consistent carbohydrate, Cardiac 2g Na,low cholest Activity: No Restrictions, As Tolerated Follow Up/Referral: Primary care physician and urologist in 1-2 weeks for further workup and evaluation of your blood clots Medications: Take Eliquis as prescribed per discharge instructions and other home medications per discharge med list Scheduled Apixaban Base (Eliquis Starter Pack), 5 MG PO BID Aspirin (Aspir-Low), 81 MG PO DAILY, (Reported) Hydrochlorothiazide (Hydrochlorothiazide), 1 TAB PO DAILY, (Reported) Metoprolol Tartrate (Metoprolol Tartrate), 1 TAB PO BID, (Reported) Olmesartan Medoxomil (Olmesartan Medoxomil), 2 TAB PO DAILY, (Reported) Tamsulosin Hcl (Flomax), 1 CAP PO DAILY, (Reported) Discontinued Medications Clopidogrel Bisulfate (Plavix), 1 TAB PO DAILY, (Reported) Olmesartan Medoxomil-Hydrochlo (Benicar Hct), 5 MG PO DAILY, (Reported) Discontinued Reason: Prescription changed Discharge Statement: "Patient was advised to return to the ER or call 911 if any headaches, dizziness, shortness of breath, chest pain, abdominal pain, bleeding, fevers, or worsening of medical condition. Patient was counseled about treatment plan, medications, possible side effects, patientverbalized understanding. All questions were answered to the best of my ability. This discharge took greater then 30 minutes in planning, reviewing documentation, counseling the patient, and discussing with other team members." ASSESSMENT ASSESSMENT Assessment Acute pulmonary embolism, acute lower extremity DVT, status post thrombectomy Date of Service: Jan 05, 2025 Billing Provider: YENI KINGSLEY MD Common Visit Codes: 34626-EUI/OBS DISCH DAY >30min YENI KINGSLEY MD Jan 05, 2025 15:45
[2025-01-10] MEDS ORDERED: APIXABAN 5 MG TAB PO SCH (22:00)
== END 2025-01-05 17:21 | disposition home or self-care (01) | DRG 270 ==
LOC: ER 10:14 → OVERFLOW 15:50 → EAST 23:00 → DOU 23:01
PROVIDERS: ADMIT Nurse Practitioner Acute Care; ATTEND Nurse Practitioner Acute Care
PROC: 4A023N7 Measurement of Cardiac Sampling and Pressure, Left Heart, Percutaneous Approach (ICD-10-PCS; principal; 2024-12-31)
PROC: B211YZZ Fluoroscopy of Multiple Coronary Arteries using Other Contrast (ICD-10-PCS; 2024-12-31)
PROC: 02CQ3ZZ Extirpation of Matter from Right Pulmonary Artery, Percutaneous Approach (ICD-10-PCS; 2025-01-03)
PROC: 06CG3ZZ Extirpation of Matter from Left External Iliac Vein, Percutaneous Approach (ICD-10-PCS; 2025-01-03)
PROC: 06CN3ZZ Extirpation of Matter from Left Femoral Vein, Percutaneous Approach (ICD-10-PCS; 2025-01-03)
PROC: 02CR3ZZ Extirpation of Matter from Left Pulmonary Artery, Percutaneous Approach (ICD-10-PCS; 2025-01-03)
DX: I25.10 Atherosclerotic heart disease of native coronary artery without angina pectoris (principal); I21.A1 Myocardial infarction type 2; I26.02 Saddle embolus of pulmonary artery with acute cor pulmonale; J96.01 Acute respiratory failure with hypoxia; I82.442 Acute embolism and thrombosis of left tibial vein; J98.11 Atelectasis; I82.412 Acute embolism and thrombosis of left femoral vein; I16.0 Hypertensive urgency; N18.9 Chronic kidney disease, unspecified; N40.0 Benign prostatic hyperplasia without lower urinary tract symptoms; E66.9 Obesity, unspecified; Z68.28 Body mass index [BMI] 28.0-28.9, adult; E78.5 Hyperlipidemia, unspecified; I12.9 Hypertensive chronic kidney disease with stage 1 through stage 4 chronic kidney disease, or unspecified chronic kidney disease; I25.2 Old myocardial infarction; Z86.74 Personal history of sudden cardiac arrest; Z87.442 Personal history of urinary calculi; Z91.128 Patient's intentional underdosing of medication regimen for other reason; Z98.61 Coronary angioplasty status; Z88.8 Allergy status to other drugs, medicaments and biological substances; Z80.9 Family history of malignant neoplasm, unspecified; Z82.49 Family history of ischemic heart disease and other diseases of the circulatory system
CPT/HCPCS: 36415; 36600; 37184; 37187; 71045; 71275; 72193; 80048; 80053; 81001; 82805; 84484; 85025; 85610; 85730; 86850; 86900; 86901; 87081; 93005; 93306; 93458; 93970; 96374; 99152; C1769; C1894; G0378; J2250; J3490; Q9967

== ENCOUNTER 2025-01-06 16:16 | Outpatient (CLI) | payer MEDICARE ==
[2025-01-06 16:15] VITALS: BP 142/72; PULSE 83; RESP 20; O2SAT 97
[~2025-01-06 16:16] MED LIST changes: +APIX5TAB4 PO; +ASPI-543 PO; +OLME5TAB22 PO; +TAMS-35 PO
[2025-01-06] MEDS: KETOROLAC TROMETH 60MG/2ML VIAL IM ONE (16:25)
[2025-01-06 16:31] VITALS: BP 103/52; PULSE 75; RESP 20; O2SAT 97
[2025-01-06] MEDS: KETOROLAC TROMETH 60MG/2ML VIAL ONE (16:45)
== END 2025-01-06 17:00 | disposition home or self-care (01) ==
LOC: CHF HDHVI 16:16
PROVIDERS: ATTEND Internal Medicine Cardiovascular Disease
DX: M10.9 Gout, unspecified (principal); M25.571 Pain in right ankle and joints of right foot; I12.9 Hypertensive chronic kidney disease with stage 1 through stage 4 chronic kidney disease, or unspecified chronic kidney disease; N18.9 Chronic kidney disease, unspecified; I25.10 Atherosclerotic heart disease of native coronary artery without angina pectoris; I25.2 Old myocardial infarction; E78.5 Hyperlipidemia, unspecified
CPT/HCPCS: 96372; G0463; J1885

== ENCOUNTER 2025-03-19 08:07 | Outpatient (CLI) | payer MEDICARE ==
[~2025-03-19] VITALS: Ht 167.6 cm; Wt 81.6 kg
--- NOTE | 2025-03-21 16:06 | DVHSR ---
APPROVED REPORT Exam: Nuclear Stress Test Indication: CAD Ht: 5 ft 6 in Wt: 180 lbs BSA: 1.91 m2 HR: 66 bpm BP: 142/73 mmHg BMI: 29.04 Rhythm: NSR Medical History Medical History: OR, Stent, HTN, Hypercholesterolemia, Smoking, Palpitations, CHF, DVT, PE Medications: Aspirin, Pantoprazole, Metoprolol tartrate, Nitroglycerin, Eliquis, Benicar, Flomax, Lyrica Allergies: Statins Cardiac Risk Factors: Family Hx of CAD Stress Test Details Stress Test: Exercise stress testing was performed using a Michael protocol. HR Resting HR: 66 bpm Max Heart Rate (APMHR): 142.191599 bpm Max HR Achieved: 121 bpm Target HR (85% APMHR): 120.989839 bpm % of APMHR: 85.21 Recovery HR: 75 bpm HR response to stress: Normal HR response to stress BP Resting BP: 142/73 mmHg Max BP: 161/73 mmHg Recovery BP: 151/75 mmHg BP response to stress: Normal blood pressure response to stress. ECG Resting ECG: Sinus Rhythm Stress ECG: Sinus Tachycardia Arrhythmia: PACs, PVC Recovery ECG: Sinus Rhythm Clinical Reason for Termination: Fatigue Stress Symptoms: Fatigue Exercise duration: 6 min 41 sec Exercise capacity: 7.0 METs Stress ECG Conclusion NON ISCHEMIC CLINICAL RESPONSE NON ISCHEMIC ECG RESPONSE INFERIOR WALL FIXED DEFECT PARTIAL LATERAL WALL REVERSIBILITY EF 45% NM EXAM: Myocardial Perfusion REST/STRESS Imaging Protocol: Rest Tc-99m/Stress Tc-99m 1 day Resting Data Rest SPECT myocardial perfusion imaging was performed in supine position 30 minutes following the intravenous injection of 10.55 mCi of Tc-99m Sestamibi. Time of rest injection: 812 Date: 03/19/2025 Time of rest imagin Date: 03/19/2025 Administration Route: IV Administration Site: Left AC Exercise Stress At peak stress, the patient was injected intravenously with 33.0 mCi of Tc-99m Sestamibi. Time of stress injection: 919 Date: 03/19/2025 Time of stress imagin Date: 03/19/2025 Administration Route: IV Administration Site: Left AC Heart Rate at time of stress injection: 116 bpm. Patient continued to exercise for 1 minute(s). Gated Stress SPECT was performed 15 minutes after stress injection. The images were gated to evaluate regional wall motion and calculate left ventricular ejection fraction. Comments Cardiolite injection at 5 minutes, 38 seconds into test. Nuclear Conclusion NON ISCHEMIC CLINICAL RESPONSE NON ISCHEMIC ECG RESPONSE INFERIOR WALL FIXED DEFECT PARTIAL LATERAL WALL REVERSIBILITY EF 45%
== END 2025-03-19 17:00 | disposition home or self-care (01) ==
LOC: Rad HDHVI 08:07
PROVIDERS: ATTEND Internal Medicine Cardiovascular Disease
DX: I49.1 Atrial premature depolarization (principal); I49.3 Ventricular premature depolarization; R00.0 Tachycardia, unspecified; I11.0 Hypertensive heart disease with heart failure; I50.23 Acute on chronic systolic (congestive) heart failure; I35.0 Nonrheumatic aortic (valve) stenosis; I25.10 Atherosclerotic heart disease of native coronary artery without angina pectoris; I25.2 Old myocardial infarction; I25.119 Atherosclerotic heart disease of native coronary artery with unspecified angina pectoris; R00.2 Palpitations; E78.00 Pure hypercholesterolemia, unspecified; F17.210 Nicotine dependence, cigarettes, uncomplicated; Z82.49 Family history of ischemic heart disease and other diseases of the circulatory system
CPT/HCPCS: 78452; 93017; A9500; 96374

== ENCOUNTER 2025-04-02 10:49 | Outpatient (CLI) | payer MEDICARE | END 2025-04-02 17:00 | disposition home or self-care (01) | LOC: Rad HDHVI 10:49 | PROVIDERS: ATTEND Internal Medicine Cardiovascular Disease | DX: M25.50 Pain in unspecified joint (principal); R10.9 Unspecified abdominal pain | CPT/HCPCS: 93925; 93970 ==

== ENCOUNTER 2025-04-24 07:29 | Day surgery (SDC) | payer MEDICARE ==
[2025-04-21 14:13] LABS: Hematocrit 49.6 % (41.0-53.0); Hemoglobin 17.2 g/dL (13.5-17.5); Mean Corpuscular Hemoglobin 30.5 pg (28.0-32.0); Mean Corpuscular Volume 88.0 fL (80.0-100.0); Nucleated Red Blood Cells % 0.3 %
[2025-04-21 14:24] LABS: INR 1.03 (0.9-1.15); Partial Thromboplastin Time 29.9 SEC (24.5-34.5); Prothrombin Time 10.9 sec (9.3-11.8)
[2025-04-21 14:38] LABS: Chloride 105 mmol/L (98-107); Potassium 4.6 mmol/L (3.5-5.1); Sodium 142 mmol/L (136-145)
[2025-04-21 14:39] LABS: Anion Gap 8 (5-15); Carbon Dioxide 29 mmol/L (20-31)
[2025-04-21 14:40] LABS: Calcium 10.1 mg/dL (8.7-10.4)
[2025-04-21 14:45] LABS: BUN/Creatinine Ratio 14.2 (10.0-20.0); Blood Urea Nitrogen 17 mg/dL (9-23); Glucose 86 mg/dL (74-106)
[~2025-04-24] VITALS: Ht 167.6 cm; Wt 84.8 kg
[2025-04-24] VITALS (9 sets, daily range): BP systolic 118–158; BP diastolic 78–96; PULSE 58–70; RESP 11–15; TEMP 97.8; O2SAT 95–98
[~2025-04-24 07:29] MED LIST changes: +APIX5TAB PO; -APIX5TAB4 PO; -HYDR12.55 PO; +NITR0.4S29 SL; -OLME5TAB22 PO; +OLME5TAB24 PO; +PREG50CA PO; -TAMS-35 PO; +VERI2.5T PO
[2025-04-24] MEDS: HEPARIN IN NS 1000Units/500mL 1,500 ML ONE (07:32)
[2025-04-24] MEDS: IOHEXOL 350 MG/ML 100ML IJ ONE (07:32)
[2025-04-24] MEDS: MIDAZOLAM HCL 2MG/2ML 2ml VIAL (1mg/ml) ONE (07:44)
[2025-04-24] MEDS: fentaNYL CITRATE 100 MCG/2 ML VL ONE (07:44)
[2025-04-24] MEDS: SODIUM CHL 0.9% 50 ML ONE ×2 (07:45→10:08)
[2025-04-24] MEDS: ANGIOMAX 250 MG VIAL IV ONE ×2 (07:45→10:08)
[2025-04-24] MEDS: LIDOCAINE 2%HCL (LOCAL ANESTH.) INJ 20ML MDV ONE (07:45)
[2025-04-24] MEDS: NITROGLYCERIN 0.4MG/DOSE SPRAY 4.9GM ONE (10:04)
[2025-04-24] MEDS ORDERED: NOREPINEPHRINE BITARTRATE 1 ML IV ONE (10:08)
[2025-04-24] MEDS: CLOPIDOGREL BISULFATE 75 MG TAB ONE (10:38)
[2025-04-24] MEDS: HYDROmorphone HCL 2 MG/ML VL/or syr ONE (10:45)
--- NOTE | 2025-04-24 12:37 | DVHHP ---
ADMIT DATE: 04/24/2025 HISTORY OF PRESENT ILLNESS: The patient who is 79 years old with history of previous coronary artery angioplasty with stent placed in the right coronary artery, now with marked decline in left ventricular ejection fraction. Furthermore, he is having increasing symptoms of shortness of breath and chest pain. Stress test shows abnormal anterior and lateral wall ischemia and because of the presentation, it was felt that the patient should undergo angiography. Risks and benefits were explained to the patient. The patient understands and agrees. PAST MEDICAL HISTORY: * Hypertension. * History of coronary artery disease. * History of previous myocardial infarction. * History of heart failure with reduced ejection fraction. * Morbidly obese. * Hyperlipidemia. FAMILY HISTORY: Negative. SOCIAL HISTORY: At this present time is negative. PHYSICAL EXAMINATION: VITAL SIGNS: Blood pressure is 134/80, pulse of 70, O2 saturation 98% on room air. HEENT: Pupils are reactive. Funduscopic exam shows no AV nicking, no exudates, no papilledema. Sclerae anterior. Oral mucosa moist. Posterior pharynx without exudate. NECK: No JVD appreciated. Carotid pulses are 2+ and symmetrical. Normal upstroke and contour. The patient's carotid pulses are 2+ symmetrical. Normal upstroke and contour. No JVD appreciated. No cervical adenopathy. No supraclavicular adenopathy appreciated. PULMONARY: Clear to auscultation in all lung galeano. ABDOMEN: Tympanitic to percussion: Liver approximately 5 cm. Stool guaiac is negative. No epigastric tenderness. No suprapubic tenderness. No CVA tenderness. EXTREMITIES: Extremities: 1+ pulses, 1+ edema as well. NEUROLOGIC: Neurologically, the patient is intact. ASSESSMENT AND PLAN: Thus, the patient with a coronary artery disease, previous history of angioplasty, stent placement of the right coronary artery, now with worsening left ventricular ejection fraction. The patient is now to undergo left heart catheterization due to fine coronary anatomy to rule out any reversible cause of cardiomyopathy. We will continue to follow the patient. Tim Feldman MD [facility] TID: [id number] RECEIPT: [id number]
--- NOTE | 2025-04-24 13:06 | DVHOP ---
DATE OF SURGERY: 04/24/2025 PROCEDURES PERFORMED: * Selective left and right coronary angiography. * Ventriculogram. * Angioplasty with thrombectomy of the left anterior descending artery with 2.5 x 13 mm Chris Cherokee stent placement in the proximal segment of the LAD. * Angioplasty with thrombectomy, obtuse marginal 1 with stent placement with a 2.5 x 15 mm [place] Cherokee stent in the proximal/ostial portion of the obtuse marginal 1 with FFR performed on both above vessels. * Balloon angioplasty of the circumflex artery at the bifurcation of the obtuse marginal 1 post stent placement. * Conscious sedation. * Ventriculogram. PROCEDURE: The patient was prepped and draped in sterile condition. 1% Xylocaine was used to anesthetize the right groin. Using a Cook needle the right femoral artery was engaged with Seldinger technique. A 6-Belizean sheath at the right femoral artery. Using 6-Belizean JL4 catheter, a 6-Belizean JR4 catheter, a selective left and right coronary angiography was performed. Using a pigtail catheter, a ventriculogram was done, left ventricular end diastolic pressure was 22 mmHg. 1. The intervention performed was in the right coronary artery. The patient was using a 6-Belizean JR4 guide catheter and multiple wires including Provia #3, Provia 6, and Provia 9. We were not able to cross a total in-stent occlusion of the RCA; however, it is getting bridging collaterals from the left. 2. The patient underwent angioplasty with stent placed in the proximal LAD. With the thrombectomy catheter used, a 3.0 x 15 mm thrombectomy catheter in the left anterior descending ostium. Following the debulking, we were able to put a 2.5 x 12 mm [place] stent in the proximal to ostial LAD. 3. Then, the wire was placed in the circumflex territory into the obtuse marginal one. Following that, it was thrombectomized using 2.5 x 13 mm Shockwave thrombectomy catheter. Following that, I stented the artery with a 2.5 x 15 mm Chris [place] stent. 4. The patient had no complication. The patient tolerated the procedure well. Both arteries intervene the LAD and FFR, had a surgical consultation for any kind of surgery he has given first directive to us. RESULTS: * Left main patent, left anterior descending artery 80% narrowing with an FFR of 0.72 post angioplasty with stent placement of the 2.5 x 12 mm Chris [place] stent following thrombectomy with Shockwave device, less than 10% residual stenosis. * Obtuse marginal 1 at a 95% narrowing status post thrombectomy with stent placement with a 2.5 x 15 mm Chris [place] less than 10% reduced stenosis. * Post angioplasty with stent placed in the obtuse marginal 1 the plaque shifted into the circumflex territory. We were able to cross the lesion and we just did balloon angioplasty with a 3.0 x 12 mm Euphora balloon. There is less than 10% residual stenosis with no residual stenosis noted. There were no complications. The patient tolerated the procedure well. CONCLUSION: The patient underwent successful angioplasty with stent placement of the proximal LAD. The patient underwent successful angioplasty with stent placement of the obtuse marginal II. The patient at this time will continue to be aggressively treated. We will continue to follow the patient. Tim Feldman MD [facility] TID: [id number] RECEIPT: [id number]
--- NOTE | 2025-04-24 13:07 | DVHOP ---
DATE OF SURGERY: 04/24/2025 PROCEDURES PERFORMED: ? Selective left and right lower extremity angiography. ? Conscious sedation. INDICATIONS: The patient having claudication-like symptoms, now to undergo the lower extremity angiography. Risks and benefits were explained to the patient. The patient understands and agrees. DESCRIPTION OF PROCEDURE: The patient was prepped and draped under sterile condition. 1% Xylocaine used to anesthetize the right groin. Using the Cook needle, the right femoral artery was engaged. With Seldinger technique, a 6-Wallisian sheath was introduced in the right femoral artery. Then, using a 6-Wallisian sheath, angiography of the right lower extremity was performed. Then, using a RIM catheter and angled Terumo wire, we were able to get in the left lower extremity and left lower extremity angiography was performed. There were no complications. The patient tolerated the procedure well. RESULTS: ? The patient's left and right common iliac without any flow restrictive lesion. ? Left and right external and internal iliacs without any flow restrictive lesion. ? Left and right common femoral without any flow restrictive lesion. ? Left and right profunda without any flow restrictive lesion. ? Left and right superficial femoral arteries without any flow restrictive lesion with bilateral 3-vessel runoff of the anterior tibial, posterior tibial, and the peroneal arteries. CONCLUSION: At this time, no intervention is required. The patient will be managed on conservative medical management. Tim Feldman MD [place] [place]: [id number] RECEIPT: [id number]
--- NOTE | 2025-04-24 18:58 | DVHDS ---
DATE OF DISCHARGE: 04/24/2025 DISCHARGE DIAGNOSES: * The patient underwent successful angioplasty with stent placement of the left anterior descending artery. * Angioplasty with stent placement of the obtuse marginal 1. * Angioplasty of the circumflex proper at the bifurcation of obtuse marginal 1. HOSPITAL COURSE: The patient at this time is clinically stable. He has diminished left ventricular ejection fraction because of occluded RCA with bridging collaterals from the left. We attempted to open the occluded RCA because of in-stent occlusions. We were not successful. Multiple attempts were made. We were not successful in revascularizing the RCA territory. At this time, conservative medical management. He may benefit from AICD since his EF is low. We will wait for 6 weeks to reimage the heart to see if there is any improvement is LVEF. If there is significant improvement in LVEF, I do not believe AICD would be required at this time. The patient will be maintained on Plavix and aspirin therapy. We will hold his Eliquis. Follow up with me in 1 week. Stable at the time of discharge. DISPOSITION: Home. ACTIVITY: As instructed. DIET: 2 g sodium diet. Tim Feldman MD [facility] TID: [id number] RECEIPT: [id number]
== END 2025-04-24 13:20 | disposition home or self-care (01) ==
LOC: CATH 07:29
PROVIDERS: ATTEND Internal Medicine Cardiovascular Disease
DX: R07.9 Chest pain, unspecified (principal); I25.10 Atherosclerotic heart disease of native coronary artery without angina pectoris; T82.855A Stenosis of coronary artery stent, initial encounter; I70.223 Atherosclerosis of native arteries of extremities with rest pain, bilateral legs; R06.02 Shortness of breath; R94.39 Abnormal result of other cardiovascular function study; I11.0 Hypertensive heart disease with heart failure; I50.22 Chronic systolic (congestive) heart failure; I25.2 Old myocardial infarction; E66.01 Morbid (severe) obesity due to excess calories; Z95.5 Presence of coronary angioplasty implant and graft; E78.5 Hyperlipidemia, unspecified; Z88.8 Allergy status to other drugs, medicaments and biological substances; Z68.30 Body mass index [BMI] 30.0-30.9, adult; Y71.8 Miscellaneous cardiovascular devices associated with adverse incidents, not elsewhere classified
CPT/HCPCS: 0523T; 36415; 75716; 80048; 85025; 85610; 85730; 92972; 92973; 93458; A4649; C1725; C1760; C1761; C1769; C1874; C1887; C1893; C1894; C9600; J0583; J1171; J1644; J2250; J3010; J7030; Q9967; 99152; 99153